=== PATIENT | male | born 1980 | race Caucasian/White ===

== ENCOUNTER 2018-06-22 10:05 | Emergency (ER) | payer BC ==
--- OUTSIDE RECORDS SUMMARY | 2018-06-22 10:30 | XMS REPORT ---
:1980 External Reference #:[id number] Author Organization [employer] Address [address] [place] [address] Phone [phone] Care Team Providers Name Role Phone Alison Lima M.D. Care Team Information Manager Equity Unavailable Payers Type Date Identification Numbers Payment Provider Subscriber Commercial Policy Number: [id number] Ray Rangel PayID: [id number] [address] [id number] [place] [address] Problems Date Description Provider Status Onset: 10/30/2011 Cholangitis Alison Lima M.D. Active Onset: 05/13/2014 Lumbar sprain Alison Lima M.D. Active Onset: 05/13/2014 Otitis media Alison Lima M.D. Active Onset: 05/20/2014 Cervical Arthritis Alison Lima M.D. Active Onset: 05/20/2014 Thoracic and lumbosacral neuritis Alison Lima M.D. Active Onset: 12/29/2014 Colitis, enteritis and gastroenteritis Alison Lima M.D. Active presumed infectious Family History Date Family Member(s) Problem(s) Comments Father Sleep Apnea Father Diabetes Mellitus, II Father Hyperlipidemia Father Heart Disease Father Hypertension Father Congestive Heart Failure (CHF) Father Cancer Father Diabetes Mellitus, II Father Congestive Heart Failure (CHF) Mother Skin Cancer First Sister Obesity Second Sister Thyroid Disease Social History Type Date Description Comments Cigarette Use Denies Smoking Cigarette Use Former Cigarette Smoker quit ETOH Use Occasionally consumes alcohol Smoking Patient is a current smoker, smokes every day Seat Belt/Car Seat Always uses a seat belt Personal Habits has been smoking synthetic marijuana, would like to quit Allergies, Adverse Reactions, Alerts Date Description Reaction Status Severity Comments 08/13/2006 NKDA active Medications Medication Date Status Form Strength Qnty SIG Indications Ordering Provider Carisoprodol 06/24 Active Tablets 350mg 240tabs 2 tab by M51.06 mouth q6 Gauss, hours M.D. Alprazolam 05/23 Active Tablets 1mg 90tabs 1 by F41.1 mouth Gauss, three M.D. times a day Omeprazole 08/30 Active Capsules 20mg 180caps take one DR daniela Lima, by mouth M.D. twice a day Carvedilol 07/04 Active Tablets 3.125mg 180tabs 1 by R00.2 mouth Gauss, twice a M.D. day Prednisone 01/27 Hx Tablets 10mg 30tabs 2 by M51.06 mouth Gauss, - every day M.D. 02/20 for week then 1 by mouth every day for 1 week then stop Amoxicillin/Clav 11/21 Hx Tablets 875-125mg 14tabs 1 by J06.9 Alison rosaura mouth Gauss, Potassium - twice a M.D. /2017 Azithromycin 10/23 Hx Tablets 250mg 6tabs 2 by J02.9 Alison mouth Gauss, - today, 1 M.D. 11/21 by mouth day 2 thru 5 Azithromycin 07/24 Hx Tablets 250mg 6tabs 2 by H66.92 mouth Gauss, - today, 1 M.D. 08/28 by mouth day 2 thru 5 Zanaflex 05/23 Hx Capsules 6mg 90caps 1 po tid M51.06 Gauss, - M.D. 06/24 Sertraline HCL 05/23 Hx Tablets 50mg 180tabs 1 by M50.023 mouth Gauss, - every day M.D. 10/23 for week then increase as needed to 2 daily Carisoprodol 04/01 Hx Tablets 350mg 180tabs 2 tab by M51.06 mouth q8 Gauss, - hours M.D. 05/23 Carisoprodol 09/26 Hx Tablets 350mg 180tabs 2 tab by M51.06 mouth q8 Janie, - hours M.D. 04/01 Azithromycin 08/30 Hx Tablets 250mg 6tabs 2 by J06.9 mouth Janie, - today, 1 M.D. 04/01 by mouth day 2 thru 5 Abilify 08/30 Hx Tablets 2mg 30tabs 1 po F43.21 daily Janie, - M.D. 10/23 Ciprodex 07/31 Hx Suspension 0.3-0.1% 5ml apply 2 drops MD Joanna - left ear 08/02 times a day for 1 week Naproxen 05/23 Hx Tablets 500mg 60tabs 1 by M5. mouth Janie, - twice a M.D. 08/28 day needed Soma 05/23 Hx Tablets 350mg 60tabs 1 by M5. mouth Janie, - three M.D. 09/26 times day and at bedtime Lidocaine 05/23 Hx Patches 5% 7units 1 patch to Janie, - affected M.D. 02/20 area, change daily Penicillin V 04/12 Hx Tablets 250mg 30tabs 1 by Alison mouth Janie, - four M.D. 05/23 times day Cyclobenzaprine 04/05 Hx Tablets 10mg 30tabs take 1 . tablet by Janie, - mouth M.D. 08/28 times a day if needed Celecoxib 04/05 Hx Capsules 200mg 180caps 1 by M5.06 mouth Janie, - twice M.D. 05/08 daily needed for joint pain Alprazolam 04/05 Hx Tablets 0.5mg 90tabs 1 by F41.1 mouth 3x Janie, - a day as M.D. 05/23 needed Lorazepam 03/12 Hx Tablets 1mg 120tabs 1 po q 6 M51.06 hours prn Janie, - muscle M.D. 04/05 spasm /2016 1 03/06 Hx Capsules 20mg 60caps 1 po F43.21 Alison /2016 daily for Gauss, - 2 weeks M.D. 03/06 then daily in am Fluoxetine HCL 03/06 Hx Capsules 20mg 180caps 2 po M50.023 Alison (PMDD) daily Gauss, - M.D. 05/23 Cymbalta 02/[address] 30mg 30caps 1 by Part mouth Gauss, - every day M.D. 02/19 Duloxetine HCL 02/[address] 20mg 30caps 1 by F43.21 Part mouth Gauss, - every day M.D. 03/06 Oxycodone-Acetam 02/05 Hx Tablets 7.5-325mg 120tabs 1 by 1. mouth Gauss, - every 6 M.D. 02/19 hours needed for pain Oxycodone HCL 12/22 Hx Tablets 10mg 120tabs 1 by . mouth Gauss, - every 6 M.D. 02/05 hours needed for pain Lorazepam 12/22 Hx Tablets 1mg 120tabs 1 po q 6 hours prn Gauss, - muscle M.D. 02/05 spasm Miralax 12/22 Hx Packet [id number] 90units 17 gms in 8 oz h2o Gauss, - every day M.D. 10/23 Robaxin 11/09 Hx Tablets 500mg 724.4 Gauss, - M.D. 11/09 Metaxalone 11/09 Hx Tablets 400mg 120tabs 1 po q 8 M54.16 hours as Gauss, - needed M.D. 10/23 for muscle spasms Oxycodone HCL ER 09/22 Hx Tab ER 12H 10mg 60tabs 1 by 0. Abuse-Det mouth Gauss, - twice a M.D. Oxycodone-Acetam 09/22 Hx Tablets 7.5-325mg 240tabs 2 by M50. mouth Gauss, - every 6 M.D. 10/22 hours needed for pain Nicotrol 08/25 Hx Inhaler 10mg 336units as drected Gauss, - M.D. 09/23 Metoclopramide 07/04 Hx Tablets 5mg 120tabs 1 po 12/03 Alison HCL hour Gauss, - before M.D. 04/01 meals as needed Azithromycin 06/06 Hx Tablets 250mg 6tabs 2 by 466.00 Alison mouth Gauss, - today, 1 M.D. 07/04 by mouth day 2 thru 5 Prednisone 05/03 Hx Tablets 10mg 21tabs 2 by 722.73 mouth Gauss, - every day M.D. 07/04 for week then 1 by mouth every day for 1 week then stop Roller Walker 05/03 Hx Misc 1units as 722.73 directed Gauss, - arthitis M.D. 05/03 and instabili ty Lidocaine 05/03 Hx Gel 2.8-0.55% 100gm apply to 722.73 Alison HCL-Hydrocortiso affected Janie ne Acetate With - areas M.D. Aloe 07/04 every hours as needed Diazepam 05/03 Hx Tablets 5mg 120tabs 1 tab po q 6 hrs Gauss, - prn M.D. 11/09 Oxycodone-Acetam 05/03 Hx Tablets 7.5-325mg 150tabs 1-2 by M51.06 Alison inophen mouth Gauss, - every 6 M.D. 12/22 hours needed for pain Cane 05/03 Hx Misc 1units as 722.73 directed Gauss, - for gait M.D. 07/04 instabili ty Metronidazole 12/29 Hx Tablets 500mg 20tabs 1 by 009.1 mouth Gauss, - twice a M.D. Ciprofloxacin 12/23 Hx Tablets 500mg 30tabs 1 by 463 Alison HCL mouth Gauss, - twice a M.D. Cyclobenzaprine 10/11 Hx Tablets 5mg 60tabs i twice a Alison HCL /2013 day prn Janie, - M.D. 07/04 Carisoprodol 08/23 Hx Tablets 350mg 60tabs 1 po bid 724.4 Janie, - M.D. 11/09 Baclofen 07/21 Hx Tablets 10mg 60tabs 1 by 724.4 mouth Janie, - twice a M.D. Nicotine Step 1 07/21 Hx Patches 21mg/24HR 30units 1 patch 24HR to skin Janie, - change M.D. 07/04 daily /2014 Lumbosacral 07/21 Hx Misc 1units as Alison Support/Abdomina /2013 [facility] 04/01 Valium 07/07 Hx Tablets 5mg 120tabs 1 by mouth Janie, - every 6hr M.D. 07/07 as needed /2013 Methylprednisolo 07/07 Hx Tablets 4mg 7tabs as Alison ne (Damaso) asha Lima, - M.D. 07/04 Diazepam 07/07 Hx Solution 1mg/ml 1 by mere Lima, - every 6hr M.D. 07/07 as needed Diazepam 07/07 Hx Tablets 10mg 120tabs 1 po q 6 724.4 hours Janie, - M.D. 07/21 Omeprazole 07/07 Hx Capsules 20mg 90caps [address] mere Lima, - every day M.D. 08/30 Hydrocodone-Acet 06/21 Hx Tablets 10-325mg 120tabs tab 1 by 847.2 Alison aminophen mouth Janie, - every M.D. 07/04 -6h /2014 as needed pain Tramadol HCL 06/21 Hx Tablets 50mg 100tabs 1 by 724.4 Alison mouth Janie, - every 6 M.D. 08/23 hours as needed pain Meloxicam 05/27 Hx Tablets 15mg 90tabs take 1 tablet Janie, - daily M.D. 07/07 with food Gabapentin 05/27 Hx Capsules 100mg 180caps 1 by 724.4 mouth Janie, - three M.D. 06/21 times a day Lidocaine HCL 05/25 Hx Gel 2% 50ml apply to 724.4 afftected Janie, - area M.D. 07/07 twice a day as needed Gabapentin 05/20 Hx Capsules 100mg 30caps 1 by 724.4 mouth at Janie, - at M.D. 05/27 bedtime Lidocaine 05/20 Hx Patches 5% 30units 1 patch 724.4 to Janie, - affected M.D. 05/25 area, change daily Work Note 05/20 Hx The above 724.4 is Janie, - disabled M.D. 07/04 from current occupatio n Azithromycin 05/13 Hx Tablets 250mg 6tabs 2 by 382.9 mouth Janie, - today, 1 M.D. 05/24 by mouth day 2 thru 5 Hydrocodone/Acet 05/13 Hx Tablets 10-325mg 120tabs tab 1 by 847.2 Alison aminophen mouth Janie, - every M.D. 06/21 -6hours as needed pain Zolpidem 03/18 Hx Tablets 10mg 30tabs 1 tab po G47.00 Alison Tartrate qhs prn Janie, - M.D. 02/19 Ibuprofen 10/26 Hx Tablets 600mg 100tabs 1 po q M51.06 6hrs Janie, - prn M.D. 04/05 Cyclobenzaprine 10/26 Hx Tablets 10mg 30tabs take 1 Alison HCL tablet by Janie, - mouth M.D. 05/13 times a day if needed Work Note 10/26 Hx the above 840.6 is Janie, - excused M.D. 05/20 from work /201306/24/14 No Active 02/23 Hx Unknown Medications /2012 - 02/23 Azithromycin 02/23 Hx Tablets 250mg 6tabs 2 po 473.90 Alison today, 1 Janie, - po day 2 M.D. 05/24 thru Work Note 02/23 Hx may 473.90 return to Janie, - work M.D. 10/2602/25/13 excused from work 02/23 and 02/24 Azithromycin 02/02 Hx Tablets 250mg 6tabs 2 po today, 1 Janie, - po day 2 M.D. 02/23 thru Nicoderm CQ 05/08 Hx Patches 21mg/24HR 30units as 24HR directed Janie, - appy MJayda 02/02 daily Bupropion HCL XL 03/05 Hx Tablets ER 150mg 90tabs take 1 309.0 24HR tablet by Janie, - mouth M.DRicardo 02/02 other day for 1 week then once daily Buspirone HCL 03/05 Hx Tablets 15mg 60tabs 1 po bid 309.0 Janie, - Aruna 02/02 Zolpidem 03/05 Hx Tablets 10mg 10tabs 1 tab po 309.0 Alison Tartrate qhs prn Janie - Hardy.DRicardo 02/02 Droperidol 02/25 Hx Solution 2.5mg/ml 50ml 2.5 ml po 078.82 q 6 hours Janie, - migue Valdovinos 02/02 nausea Hydralazine HCL 02/25 Hx Tablets 25mg 90tabs 1 po tid 292.0 Janie, - M.Lebron 03/05 Oxycodone/Acetam 02/05 Hx Tablets 5-325mg 180tabs 1 tab po Alison inophen q 4-6 hrs Janie - migue Valdovinos 02/25 Nortriptyline 02/05 Hx Capsules 50mg 60caps start 078.82 Alison HCL with 1 Janie, - tablet at M.DRicardo 03/05 bedtime may increase to 2 after 1 week Skelaxin 01/29 Hx Tablets 400mg 30tabs 1 po bid prn Janie - M.Lebron 02/25 Ibuprofen 01/02 Hx Tablets 200mg prn Elaine Lima MJayda 01/02 Ibuprofen 01/02 Hx Tablets 800mg 30tabs 1 po q8 hours prn Janie, - with food M.D. 02/02 Work Note 01/02 Hx may 847.2 return to Janie, - work M.D. 02/0401/07/2012 no restricti ons Doxycycline 01/02 Hx Capsules 100mg 14caps 1 po bid 682.90 Alison Monohydrate Janie - Aruna 02/04 Amoxicillin/Pota 10/30 Hx Tablets 875-125mg 20tabs 1 po bid 576.1 Alison ssium Janie Clavulanate - M.DRicardo 10/30 Metoclopramide 10/30 Hx Tablets 10mg 100tabs 1 tab po 576.1 Alison HCL q 6 hrs Janie, - prn M.DRicardo 01/02 Hydrocodone/Acet 10/30 Hx Tablets 5-500mg 30tabs tab 1 q 4 576.1 Alison aminophen hrs prn Janie, - pain M.D. 02/04 Work Note 10/30 Hx april 576.1 return to Janie, - work M.D. 01/02 1 no restricti ons Amoxicillin 10/30 Hx Tablets 500mg 30tabs 1 po tid 576.1 Elaine Lima MJayda 01/02 Azithromycin 04/05 Hx Tablets 250mg 6tabs 2 po today, 1 Janie, - po day 2 M.D. 09/25 thru Maxalt 01/10 Hx Tablets 10mg Samoles as Alison directed Elaine Lima MJayda 01/02 Work Note 01/14 Hx Excused from work Janie, - on Sep M.D. 09/25 Zofran 05/14 Hx Tablets 8mg 20tabs sl q 3 E920.5 El hours as MD Joanna - needed 01/06 nausea Compazine 05/11 Hx 10mg prn Janie - M.DRicardo 01/06 Zofran 05/11 Hx Tablets 4mg 20tabs 1 po q 3 E920.5 hours prn Janie - M.D. 05/14 Work Note 05/11 Hx off work for the Janie, - rest of M.D. 01/0605/13/08. may return to work on saturday05/17/08 Hydrocodone & 12/04 Hx Capsules 5mg;500 10caps 1 Tab PO Alison Acetaminophen mg Q 8 HR Janie, - Mod Pain M.DRicardo 05/11 Lumbar Corset 02/18 Hx 1units as 847.2 directed Janie - M.DRicardo 05/11 Cortisporin-TC 12/12 Hx Suspension 0.3%;0.33 5ml 1 gt A.D. %;1 % qid Janie - M.DRicardo 12/12 Work Note 12/12 Hx please excuse Janie, - from work M.D. 05/1112-14-06 Cortisporin 12/12 Hx Ointment 400U;3.5m 3.5gm as Ophthalmic g;38976P; directed Janie, - 10 bid M.D. 12/22 Return To Work 09/03 Hx return to work no Janie, - restricti M.DRicardo 05/1109/04/06 No Meds 08/13 Hx Janie - M.DRicardo 05/11 Skelaxin 08/13 Hx Tablets 800mg 30tabs prn 847.2 Janie - M.DRicardo 01/02 Ibuprofen 08/13 Hx Tablets 800mg 90tabs 1 PO Q8 847.2 Hours prn Janie, - With Food M.D. 01/02 Hydrocodone & 08/13 Hx Tablets 5mg;500 60tabs 1 or 2 847.2 Alison Acetaminophen /2005 mg tabs po q Janie, - 4 hrs prn M.DRicardo 11/30 Work Release 08/13 Hx the above 847.2 is Elaine Lima excused Aruna 05/11 from until 08/20 Combivir Hx Tablets po bid Unknown / - 01/06 Viread Hx Tablets 300mg qday Unknown - 01/06 Flexeril Hx Tablets 10mg 90tabs 1 po tid Alison prn Elaine Lmia M.D. 01/29 Amitriptyline Hx Tablets 50mg 180tabs 1 tab pot Unknown HCL 0000 qd - 02/05 Zofran Odt Hx Tablets 8mg 10tabs 1 po prn Alison Dispers nausea Elaine Lima M.D. 02/25 Ciprodex Hx Suspension 0.3-0.1% apply 2 Unknown drops - left ear 04/01 times a day for 1 week Immunizations CPT Code Status Date Vaccine Lot # [id number] Given 10/23/2017 Influenza Virus (Afluria) Split Virus 3 Years Of Age And Older Q2037 Given 09/26/2016 Influenza Vaccine (Fluvirin) 4 Years Of Age Or [id number] Older Q2035 Given 08/16/2015 Influenza Virus (Afluria) Split Virus 4 Years Of [id number] Age And Older Q2037 Given 08/23/2014 Influenza Vaccine (Fluvirin) 4 Years Of Age Or [id number] Older 17273 Given 07/21/2014 Tetanus,Diphtheria,Adut/Adol Pertussis 12419 Given 11/05/2006 Influenza Virus Vaccine (History Only) Vital Signs Date Vital Result Comment 06/17/2018 BP Systolic 122 mmHg BP Diastolic 78 mmHg Heart Rate 81 /min Respiratory Rate 18 /min Height 72 inches 6'0" Weight 237.00 lb BMI (Body Mass Index) 32.1 kg/m2 O2 % BldC Oximetry 96 % 05/20/2018 BP Systolic 130 mmHg BP Diastolic 88 mmHg Heart Rate 80 /min Respiratory Rate 18 /min Height 72 inches 6'0" Weight 241.00 lb BMI (Body Mass Index) 32.7 kg/m2 O2 % BldC Oximetry 95 % 04/15/2018 BP Systolic 140 mmHg BP Diastolic 90 mmHg Heart Rate 106 /min Respiratory Rate 18 /min Height 72 inches 6'0" Weight 241.00 lb BMI (Body Mass Index) 32.7 kg/m2 O2 % BldC Oximetry 94 % 03/19/2018 BP Systolic 126 mmHg BP Diastolic 78 mmHg Respiratory Rate 18 /min Height 72 inches 6'0" Weight 241.00 lb BMI (Body Mass Index) 32.7 kg/m2 02/20/2018 BP Systolic 120 mmHg BP Diastolic 78 mmHg Height 72 inches 6'0" Weight 241.00 lb BMI (Body Mass Index) 32.7 kg/m2 01/27/2018 BP Systolic 142 mmHg BP Diastolic 92 mmHg Respiratory Rate 18 /min Height 72 inches 6'0" Weight 226.00 lb BMI (Body Mass Index) 30.6 kg/m2 12/24/2017 BP Systolic 160 mmHg BP Diastolic 100 mmHg BP Systolic Recheck 132 mmHg BP Diastolic Recheck 82 mmHg Respiratory Rate 18 /min Height 72 inches 6'0" Weight 226.00 lb BMI (Body Mass Index) 30.6 kg/m2 11/21/2017 BP Systolic 138 mmHg BP Diastolic 90 mmHg Height 72 inches 6'0" Weight 226.00 lb BMI (Body Mass Index) 30.6 kg/m2 10/23/2017 BP Systolic 134 mmHg BP Diastolic 78 mmHg Height 72 inches 6'0" Weight 226.00 lb BMI (Body Mass Index) 30.6 kg/m2 08/28/2017 BP Systolic 128 mmHg BP Diastolic 76 mmHg 07/24/2017 BP Systolic 116 mmHg BP Diastolic 86 mmHg Weight 206.00 lb 06/24/2017 BP Systolic 130 mmHg BP Diastolic 80 mmHg 05/23/2017 BP Systolic 128 mmHg BP Diastolic 80 mmHg 04/01/2017 BP Systolic 140 mmHg BP Diastolic 90 mmHg Height 68 inches 5'8" Weight 218.00 lb BMI (Body Mass Index) 33.1 kg/m2 01/28/2017 BP Systolic 130 mmHg BP Diastolic 82 mmHg 12/26/2016 BP Systolic 122 mmHg BP Diastolic 78 mmHg 11/21/2016 BP Systolic 120 mmHg BP Diastolic 100 mmHg 09/26/2016 BP Systolic 110 mmHg BP Diastolic 72 mmHg 08/30/2016 BP Systolic 132 mmHg BP Diastolic 80 mmHg 08/02/2016 BP Systolic 122 mmHg BP Diastolic 80 mmHg 07/04/2016 BP Systolic 132 mmHg BP Diastolic 90 mmHg BP Systolic Recheck 130 mmHg BP Diastolic Recheck 88 mmHg 06/07/2016 BP Systolic 118 mmHg BP Diastolic 72 mmHg 05/23/2016 BP Systolic 158 mmHg BP Diastolic 88 mmHg 05/08/2016 BP Systolic 144 mmHg BP Diastolic 80 mmHg 04/05/2016 BP Systolic 138 mmHg BP Diastolic 62 mmHg Height 70 inches 5'10" Weight 188.00 lb BMI (Body Mass Index) 27.0 kg/m2 03/06/2016 BP Systolic 144 mmHg BP Diastolic 86 mmHg 02/06/2016 BP Systolic 120 mmHg BP Diastolic 80 mmHg 12/22/2015 BP Systolic 112 mmHg BP Diastolic 60 mmHg 10/13/2015 BP Systolic 130 mmHg BP Diastolic 80 mmHg 09/22/2015 BP Systolic 120 mmHg BP Diastolic 90 mmHg 09/15/2015 BP Systolic 130 mmHg BP Diastolic 70 mmHg 08/16/2015 BP Systolic 118 mmHg BP Diastolic 78 mmHg 07/04/2015 BP Systolic 112 mmHg BP Diastolic 80 mmHg 06/06/2015 BP Systolic 122 mmHg BP Diastolic 78 mmHg 05/03/2015 BP Systolic 114 mmHg BP Diastolic 84 mmHg 12/29/2014 BP Systolic 120 mmHg BP Diastolic 76 mmHg 12/23/2014 BP Systolic 118 mmHg BP Diastolic 74 mmHg Body Temperature 98.8 F Height 70 inches 5'10" Weight 200.00 lb BMI (Body Mass Index) 28.7 kg/m2 11/22/2014 BP Systolic 140 mmHg BP Diastolic 86 mmHg 08/23/2014 BP Systolic 120 mmHg BP Diastolic 80 mmHg Height 69 inches 5'9" Weight 180.00 lb BMI (Body Mass Index) 26.6 kg/m2 07/07/2014 BP Systolic 144 mmHg BP Diastolic 86 mmHg 06/21/2014 BP Systolic 122 mmHg BP Diastolic 60 mmHg Height 72 inches 6'0" Weight 183.00 lb BMI (Body Mass Index) 24.8 kg/m2 05/20/2014 BP Systolic 144 mmHg BP Diastolic 90 mmHg 05/13/2014 BP Systolic 144 mmHg BP Diastolic 86 mmHg Body Temperature 98.3 F 05/04/2014 BP Systolic 122 mmHg BP Diastolic 80 mmHg 03/18/2014 BP Systolic 132 mmHg BP Diastolic 80 mmHg 10/26/2013 BP Systolic 120 mmHg BP Diastolic 78 mmHg 02/23/2013 BP Systolic 120 mmHg BP Diastolic 70 mmHg Body Temperature 99.1 F 04/09/2012 BP Systolic 122 mmHg BP Diastolic 68 mmHg Height 71 inches 5'11" Weight 173.00 lb BMI (Body Mass Index) 24.1 kg/m2 03/05/2012 BP Systolic 118 mmHg BP Diastolic 60 mmHg Height 71 inches 5'11" 02/26/2012 BP Systolic 132 mmHg BP Diastolic 94 mmHg Height 71 inches 5'11" Weight 171.00 lb BMI (Body Mass Index) 23.8 kg/m2 02/06/2012 BP Systolic 96 mmHg BP Diastolic 68 mmHg Body Temperature 97.8 F Height 71 inches 5'11" Weight 177.00 lb BMI (Body Mass Index) 24.7 kg/m2 01/02/2012 BP Systolic 118 mmHg BP Diastolic 70 mmHg Body Temperature 97.4 F 10/30/2011 BP Systolic 131 mmHg BP Diastolic 81 mmHg Body Temperature 97.8 F 01/14/2009 BP Systolic 120 mmHg BP Diastolic 80 mmHg Height 72 inches 6'0" 08/17/2008 BP Systolic 112 mmHg BP Diastolic 60 mmHg Height 72 inches 6'0" Weight 202.00 lb BMI (Body Mass Index) 27.4 kg/m2 05/11/2008 BP Systolic 110 mmHg BP Diastolic 78 mmHg Height 72 inches 6'0" Weight 198.00 lb BMI (Body Mass Index) 26.9 kg/m2 02/18/2007 BP Systolic 122 mmHg BP Diastolic 60 mmHg Height 72 inches 6'0" Weight 189.00 lb BMI (Body Mass Index) 25.6 kg/m2 08/13/2006 BP Systolic 140 mmHg BP Diastolic 90 mmHg Height 72 inches 6'0" Weight 175.00 lb BMI (Body Mass Index) 23.7 kg/m2 Results Test Date Test Result H/L Range Note Laboratory test 05/09/2018 Surgical Interface SEE RESULT BELOW 1, 2 finding Order BMP W/O Egfr 03/08/2016 Sodium 138 mmol/L 133-145 Potassium 4.3 mmol/L 3.5-5.0 Chloride 103 mmol/L 101-111 Co2 Carbon Dioxide 29 mmol/L 22-32 Anion Gap 6 mmol/L 2-11 Glucose 82 mg/dL 70-100 Blood Urea Nitrogen 11 mg/dL 6-24 Creatinine 0.91 mg/dL 0.67-1.17 BUN/Creatinine Ratio 12.1 8-20 Calcium 9.4 mg/dL 8.6-10.3 Egfr Non- 95.4 >60 Egfr 122.7 >60 3 TSH+Free T4 ([place] & 03/08/2016 TSH (Thyroid Stim Horm) 0.92 ?IU/mL 0.34-5.60 [facility]) Free T4 (Free Thyroxine) 0.99 ng/dL 0.61-1.12 Lipid Panel 03/08/2016 Triglycerides 76 mg/dL 4 Cholesterol 126 mg/dL 5 HDL Cholesterol 35.3 mg/dL 6 LDL Cholesterol 76 mg/dL 7 CBC W/ Diff & PLT 03/08/2016 White Blood Count 5.2 10^3/uL 3.5-10.8 Red Blood Count 4.82 10^6/uL 4.0-5.4 Hemoglobin 14.6 g/dL 14.0-18.0 Hematocrit 43 % 42-52 Mean Corpuscular Volume 89 fL 80-94 Mean Corpuscular Hemoglobin 30 pg 27-31 Mean Corpuscular HGB Conc 34 g/dL 31-36 Red Cell Distribution Width 13 % 10.5-15 Platelet Count 273 10^3/uL 150-450 Mean Platelet Volume 9 um3 7.4-10.4 Abs Neutrophils 2.8 10^3/uL 1.5-7.7 Abs Lymphocytes 1.8 10^3/uL 1.0-4.8 Abs Monocytes 0.4 10^3/uL 0-0.8 Abs Eosinophils 0.1 10^3/uL 0-0.6 Abs Basophils 0 10^3/uL 0-0.2 Abs Nucleated RBC 0 10^3/uL Granulocyte % 54.4 % 38-83 Lymphocyte % 34.2 % 25-47 Monocyte % 8.1 % 1-9 Eosinophil % 2.5 % 0-6 Basophil % 0.8 % 0-2 Nucleated Red Blood Cells % 0.1 Surgical Pathology 02/03/2015 S RUN DATE: 02/04/ <SEE 8 NOTE> Liver - Hepatic Panel 01/05/2015 Total Protein 6.7 g/dL 6.4-8.9 Albumin 4.5 g/dL 3.2-5.2 Globulin 2.2 g/dL 2-4 Albumin/Globulin Ratio 2.0 1-3 Total Bilirubin 1.10 mg/dL High 0.2-1.0 Direct Bilirubin 0.30 mg/dL High 0.03-0.18 Indirect Bilirubin 0.8 mg/dL 0.3-1.0 Alkaline Phosphatase 71 U/L 34-104 Alt 32 U/L 7-52 Ast 20 U/L 13-39 Hepatitis Acute Panel 01/05/2015 Hepatitis B Surface Nonreactive Nonreactive Antigen Hepatitis B Core IgM Nonreactive Nonreactive Hepatitis A AB IgM Nonreactive Nonreactive Hepatitis C Antibody Nonreactive Nonreactive Culture,Throat 12/29/2014 Source RESPIRATORY-THRT 9 Final Report SEE NOTE 10 CBC W/Auto Diff 12/24/2014 White Blood Count 10.5 10^3/uL 4.8-10.8 Red Blood Count 5.25 10^6/uL 4.0-5.4 Hemoglobin 16.1 g/dL 14.0-18.0 Hematocrit 48 % 42-52 Mean Corpuscular Volume 91 fL 80-94 Mean Corpuscular Hemoglobin 31 pg 27-31 Mean Corpuscular HGB Conc 34 g/dL 31-36 Red Cell Distribution Width 13 % 10.5-15 Platelet Count 280 10^3/uL 150-450 Mean Platelet Volume 10 um3 7.4-10.4 Abs Neutrophils 7.2 10^3/uL 1.5-7.7 Abs Lymphocytes 2.2 10^3/uL 1.0-4.8 Abs Monocytes 0.8 10^3/uL 0-0.8 Abs Eosinophils 0.4 10^3/uL 0-0.6 Abs Basophils 0 10^3/uL 0-0.2 Abs Nucleated RBC 0.01 10^3/uL Granulocyte % 68.3 % 38-83 Lymphocyte % 20.6 % Low 25-47 Monocyte % 7.2 % 1-9 Eosinophil % 3.5 % 0-6 Basophil % 0.4 % 0-2 Nucleated Red Blood Cells % 0.1 BMP 12/24/2014 Sodium 138 mmol/L 133-145 Potassium 3.9 mmol/L 3.5-5.0 Chloride 103 mmol/L 101-111 Co2 Carbon Dioxide 29 mmol/L 22-32 Anion Gap 6 mmol/L 2-11 Glucose 104 mg/dL High 70-100 Blood Urea Nitrogen 13 mg/dL 6-24 Creatinine 1.03 mg/dL 0.67-1.17 BUN/Creatinine Ratio 12.6 8-20 Calcium 9.6 mg/dL 8.6-10.3 Egfr Non- 83.2 >60 Egfr 107.0 >60 11 Liver - Hepatic Panel 12/24/2014 Total Protein 7.3 g/dL 6.4-8.9 Albumin 4.8 g/dL 3.2-5.2 Globulin 2.5 g/dL 2-4 Albumin/Globulin Ratio 1.9 1-3 Total Bilirubin 1.60 mg/dL High 0.2-1.0 Direct Bilirubin 0.30 mg/dL High 0.03-0.18 Indirect Bilirubin 1.3 mg/dL High 0.3-1.0 Alkaline Phosphatase 79 U/L 34-104 Alt 27 U/L 7-52 Ast 17 U/L 13-39 Laboratory test finding 12/24/2014 Amylase 35 U/L 29-103 Lipase 21 U/L 11.0-82.0 Hla B27 Antigen 06/17/2014 Hla B27 Negative 12 Hla B27 Interp See Comment 13 Arthritis Panel One 06/17/2014 Erythrocyte Sed Rate 7 mm/Hr 0-14 Uric Acid 6.4 mg/dL 4.4-7.6 Bev (Anti-Nuclear AB) Screen Negative Negative Rheumatoid Factor <15 IU/mL <15 14 CBC No Diff 02/27/2012 White Blood Count 6.1 CUMM 4.8-10.8 Red Cell Count 4.66 CUMM 4.6-6.2 Hemoglobin 14.8 g/dL 14.0-18.0 Hematocrit 43 % 42-52 Mean Corpuscular Volume 93 um3 80-94 Mean Corpuscular Hemoglob 32 pg High 27-31 Mean Corpuscular HGB Cone 34 g/dL 32-36 Redcell Distribution WDTH 13 % 10.5-15 Platelet Count 308 CUMM 150-450 Mean Platelet Volume 9.0 um3 7.4-10.4 Basic Metabolic Panel 02/27/2012 Sodium 140 mmol/L 135-145 Potassium 4.9 mmol/L 3.5-5.0 Chloride 103 mmol/L 101-111 Co2 (Carbon Dioxide) 33.0 mmol/L High 22-32 Anion Gap 4.0 mmol/L 2-11 15 Glucose 92 mg/dL 70-100 BUN 8 mg/dL 6-24 Creatinine 1.0 mg/dL 0.50-1.40 One Over Creatinine 1.00 BUN/Creatinine Ratio 8.0 8-20 Calcium 9.6 mg/dL 8.1-9.9 eGFR Non- 87.7 > 60 eGFR 112.8 > 60 16 Lipid Profile (Trig/Chol/HDL) 02/27/2012 Triglyceride 52 mg/dL 40-200 Cholesterol 149 mg/dL Less Than 200 17 High Density Lipoprotein 38 mg/dL Low 40-60 18 Cholesterol/HDL Ratio 3.92 AVERAGE 1-4.97 Low Density Lipoprotein 101 mg/dL High Less Than 100 19 Laboratory test finding 02/27/2012 Lipase 40 U/L 22-51 TSH 0.92 MIU/ML 0.34-5.60 Hemoglobin A1c 4.8 % Less Than 6.0 20 Vitamin D, 25 Hydroxy 02/27/2012 25-Hydroxy Vitamin D2 <4.0 ng/mL () 25-Hydroxy Vitamin D3 24 ng/mL () 25-Hydroxy Vitamin D Total 24 ng/mL () 21 Urinalysis 02/09/2012 Ua Color YELLOW Yellow Appearance-Urine CLEAR Clear Specific Marion-Ur 1.014 1.010-1.030 Esterase-Urine NEGATIVE Negative Nitrite NEGATIVE Negative [id number] NEGATIVE Negative Protein-Urine NEGATIVE Negative PH-Urine 8.5 5-9 Blood-Urine NEGATIVE Negative Ketones-Urine NEGATIVE Negative Bilirubin-Ur NEGATIVE Negative Glucose-Urine NEGATIVE Negative Urine Drug SCR ED & 02/09/2012 Amphetamines Urine NONE DETECTED None Detect Pain Clinic Screen Barbituates Urine Screen NONE DETECTED None Detect Benzodiazepine Ur Screen NONE DETECTED None Detect Cannabinoid Urine Screen NONE DETECTED None Detect Cocaine Metabolites Urine NONE DETECTED None Detect Opiates Urine Screen POSITIVE None Detect PCP Urine Screen NONE DETECTED None Detect 22 Comp Metabolic Panel 02/09/2012 Sodium 138 mmol/L 135-145 Potassium 4.2 mmol/L 3.5-5.0 Chloride 102 mmol/L 101-111 Co2 (Carbon Dioxide) 27.0 mmol/L 22-32 Anion Gap 9.0 mmol/L 2-11 23 Glucose 104 mg/dL High 70-100 BUN 7 mg/dL 6-24 Creatinine 0.9 mg/dL 0.50-1.40 One Over Creatinine 1.11 BUN/Creatinine Ratio 7.8 Low 8-20 Calcium 9.1 mg/dL 8.1-9.9 Total Protein 7.3 GM/DL 6.2-8.1 Albumin 4.4 GM/DL 3.6-5.4 Globulin 2.9 GM/DL 2-4 Albumin/Globulin Ratio 1.5 1-3 Bilirubin Total 1.0 mg/dL 0.4-1.5 24 Alkaline Phosphatase 83 U/L 39-117 Alt (SGPT) 29 U/L 17-63 Ast (Sgot) 23 U/L 12-42 eGFR Non- 99.1 > 60 eGFR 127.4 > 60 25 Laboratory test finding 02/09/2012 Magnesium 2.2 mg/dL 1.7-2.6 Lipase 66 U/L High 22-51 Troponin-I 0 NG/ML 0-0.06 26 CBC Auto Diff 02/09/2012 White Blood Count 12.8 CUMM High 4.8-10.8 Red Cell Count 4.73 CUMM 4.6-6.2 Hemoglobin 15.4 g/dL 14.0-18.0 Hematocrit 44 % 42-52 Mean Corpuscular Volume 94 um3 80-94 Mean Corpuscular Hemoglob 33 pg High 27-31 Mean Corpuscular HGB Cone 35 g/dL 32-36 Redcell Distribution WDTH 14 % 10.5-15 Platelet Count 257 CUMM 150-450 Mean Platelet Volume 9.7 um3 7.4-10.4 27 Manual Differential 02/09/2012 Polysegmented Neutrophil 82 % 38-83 Band Neutrophil 6 % 0-8 Lymphocyte 9 % Low 25-47 Monocyte 3 % 0-13 Absolute Neutrophil Count 11.2 RBC Morphology NORMAL Comp Metabolic Panel 01/14/2012 Sodium 139 mmol/L 135-145 Potassium 3.5 mmol/L 3.5-5.0 Chloride 101 mmol/L 101-111 Co2 (Carbon Dioxide) 30.0 mmol/L 22-32 Anion Gap 8.0 mmol/L 2-11 28 Glucose 83 mg/dL 70-100 BUN 11 mg/dL 6-24 Creatinine 1.0 mg/dL 0.50-1.40 One Over Creatinine 1.00 BUN/Creatinine Ratio 11.0 8-20 Calcium 9.3 mg/dL 8.1-9.9 Total Protein 6.5 GM/DL 6.2-8.1 Albumin 4.3 GM/DL 3.6-5.4 Globulin 2.2 GM/DL 2-4 Albumin/Globulin Ratio 2.0 1-3 Bilirubin Total 1.0 mg/dL 0.4-1.5 29 Alkaline Phosphatase 77 U/L 39-117 Alt (SGPT) 21 U/L 17-63 Ast (Sgot) 27 U/L 12-42 eGFR Non- 87.7 > 60 eGFR 112.8 > 60 30 Laboratory test finding 01/14/2012 Lipase 29 U/L 22-51 CBC Auto Diff 01/14/2012 White Blood Count 15.0 CUMM High 4.8-10.8 Red Cell Count 4.39 CUMM Low 4.6-6.2 Hemoglobin 14.0 g/dL 14.0-18.0 Hematocrit 40 % Low 42-52 Mean Corpuscular Volume 91 um3 80-94 Mean Corpuscular Hemoglob 32 pg High 27-31 Mean Corpuscular HGB Cone 35 g/dL 32-36 Redcell Distribution WDTH 13 % 10.5-15 Platelet Count 293 CUMM 150-450 Mean Platelet Volume 9.2 um3 7.4-10.4 31 Manual Differential 01/14/2012 Polysegmented Neutrophil 72 % 38-83 Lymphocyte 20 % Low 25-47 Monocyte 5 % 0-13 Eosinophil 1 % 0-6 Atypical Lymph 2 % 0-6 Absolute Neutrophil Count 10.8 Anisocytosis SLIGHT Comp Metabolic Panel 12/24/2011 Sodium 139 mmol/L 135-145 Potassium 3.9 mmol/L 3.5-5.0 Chloride 104 mmol/L 101-111 Co2 (Carbon Dioxide) 27.0 mmol/L 22-32 Anion Gap 8.0 mmol/L 2-11 32 Glucose 102 mg/dL High 70-100 BUN 8 mg/dL 6-24 Creatinine 0.9 mg/dL 0.50-1.40 One Over Creatinine 1.11 BUN/Creatinine Ratio 8.9 8-20 Calcium 9.0 mg/dL 8.1-9.9 Total Protein 6.6 GM/DL 6.2-8.1 Albumin 4.3 GM/DL 3.6-5.4 Globulin 2.3 GM/DL 2-4 Albumin/Globulin Ratio 1.9 1-3 Bilirubin Total 0.9 mg/dL 0.4-1.5 33 Alkaline Phosphatase 79 U/L 39-117 Alt (SGPT) 17 U/L 17-63 Ast (Sgot) 21 U/L 12-42 eGFR Non- 99.1 > 60 eGFR 127.4 > 60 34 CBC Auto Diff 12/24/2011 White Blood Count 12.0 CUMM High 4.8-10.8 Red Cell Count 4.83 CUMM 4.6-6.2 Hemoglobin 15.3 g/dL 14.0-18.0 Hematocrit 44 % 42-52 Mean Corpuscular Volume 92 um3 80-94 Mean Corpuscular Hemoglob 32 pg High 27-31 Mean Corpuscular HGB Cone 35 g/dL 32-36 Redcell Distribution WDTH 13 % 10.5-15 Platelet Count 253 CUMM 150-450 Mean Platelet Volume 8.3 um3 7.4-10.4 35 Manual Differential 12/24/2011 Polysegmented Neutrophil 82 % 38-83 Lymphocyte 12 % Low 25-47 Monocyte 4 % 0-13 Eosinophil 1 % 0-6 Basophil 1 % 0-2 Absolute Neutrophil Count 9.8 RBC Morphology NORMAL CBC Auto Diff 10/31/2011 White Blood Count 9.2 CUMM 4.8-10.8 Red Cell Count 4.76 CUMM 4.6-6.2 Hemoglobin 15.2 g/dL 14.0-18.0 Hematocrit 44 % 42-52 Mean Corpuscular Volume 92 um3 80-94 Mean Corpuscular Hemoglob 32 pg High 27-31 Mean Corpuscular HGB Cone 35 g/dL 32-36 Redcell Distribution WDTH 13 % 10.5-15 Platelet Count 258 CUMM 150-450 Mean Platelet Volume 9.9 um3 7.4-10.4 Gran % 73.1 % 38-83 Lymph % 20.9 % Low 25-47 Mononuclear % 4.7 % 1-9 Eosinophil % 1.0 % 0-6 Basophil % 0.3 % 0-2 Abs Lymphs 1.9 1.0-4.8 Abs Mononuclear 0.4 0-0.8 Absolute Neutrophil Count 6.8 1.5-7.7 Abs Eosinophils 0.1 0-0.6 Abs Basophils 0 0-0.2 Liver Function Panel 10/31/2011 Total Protein 7.0 GM/DL 6.2-8.1 Albumin 4.3 GM/DL 3.6-5.4 Globulin 2.7 GM/DL 2-4 Albumin/Globulin Ratio 1.6 1-3 Bilirubin Total 3.2 mg/dL High 0.4-1.5 36 Bilirubin Direct 0.3 mg/dL 0.1-0.5 Indirect Bilirubin 2.9 mg/dL High 0.3-1.0 37 Alkaline Phosphatase 83 U/L 39-117 Alt (SGPT) 108 U/L High 17-63 Ast (Sgot) 49 U/L High 12-42 CBC Auto Diff 10/29/2011 White Blood Count 12.1 CUMM High 4.8-10.8 Red Cell Count 5.02 CUMM 4.6-6.2 Hemoglobin 16.2 g/dL 14.0-18.0 Hematocrit 47 % 42-52 Mean Corpuscular Volume 93 um3 80-94 Mean Corpuscular Hemoglob 32 pg High 27-31 Mean Corpuscular HGB Cone 35 g/dL 32-36 Redcell Distribution WDTH 13 % 10.5-15 Platelet Count 266 CUMM 150-450 Mean Platelet Volume 10.6 um3 High 7.4-10.4 Gran % 69.2 % 38-83 Lymph % 18.0 % Low 25-47 Mononuclear % 7.7 % 1-9 Eosinophil % 4.4 % 0-6 Basophil % 0.7 % 0-2 Abs Lymphs 2.2 1.0-4.8 Abs Mononuclear 0.9 High 0-0.8 Absolute Neutrophil Count 8.4 High 1.5-7.7 Abs Eosinophils 0.5 0-0.6 Abs Basophils 0.1 0-0.2 Comp Metabolic Panel 10/29/2011 Sodium 143 mmol/L 135-145 Potassium 4.1 mmol/L 3.5-5.0 Chloride 106 mmol/L 101-111 Co2 (Carbon Dioxide) 23.0 mmol/L 22-32 Anion Gap 14.0 mmol/L High 2-11 38 Glucose 92 mg/dL 70-100 BUN 15 mg/dL 6-24 Creatinine 1.0 mg/dL 0.50-1.40 One Over Creatinine 1.00 BUN/Creatinine Ratio 15.0 8-20 Calcium 9.6 mg/dL 8.1-9.9 Total Protein 7.4 GM/DL 6.2-8.1 Albumin 4.3 GM/DL 3.6-5.4 Globulin 3.1 GM/DL 2-4 Albumin/Globulin Ratio 1.4 1-3 Bilirubin Total 1.2 mg/dL 0.4-1.5 39 Alkaline Phosphatase 81 U/L 39-117 Alt (SGPT) 107 U/L High 17-63 Ast (Sgot) 64 U/L High 12-42 eGFR Non- 88.3 > 60 eGFR 113.6 > 60 40 Laboratory test finding 10/29/2011 Lipase 37 U/L 22-51 Comp Metabolic Panel 10/19/2011 Sodium 139 mmol/L 135-145 41 Potassium 4.4 mmol/L 3.5-5.0 41 Chloride 102 mmol/L 101-111 41 Co2 (Carbon Dioxide) 30.0 mmol/L 22-32 41 Anion Gap 7.0 mmol/L 2-11 41, 42 Glucose 93 mg/dL 70-100 41 BUN 10 mg/dL 6-24 41 Creatinine 1.0 mg/dL 0.50-1.40 41 One Over Creatinine 1.00 41 BUN/Creatinine Ratio 10.0 8-20 41 Calcium 8.9 mg/dL 8.1-9.9 41 Total Protein 5.9 GM/DL Low 6.2-8.1 41 Albumin 3.8 GM/DL 3.6-5.4 41 Globulin 2.1 GM/DL 2-4 41 Albumin/Globulin Ratio 1.8 1-3 41 Bilirubin Total 0.8 mg/dL 0.4-1.5 41, 43 Alkaline Phosphatase 68 U/L 39-117 41 Alt (SGPT) 33 U/L 17-63 41 Ast (Sgot) 29 U/L 12-42 41 eGFR Non- 88.3 > 60 41 eGFR 113.6 > 60 41, 44 Laboratory test finding 10/19/2011 Amylase 57 U/L 20-120 41, 45 CBC With Manual Diff 10/19/2011 White Blood Count 8.0 CUMM 4.8-10.8 41 Red Cell Count 4.33 CUMM Low 4.6-6.2 41 Hemoglobin 14.0 g/dL 14.0-18.0 41 Hematocrit 40 % Low 42-52 41 Mean Corpuscular Volume 92 um3 80-94 41 Mean Corpuscular Hemoglob 32 pg High 27-31 41 Mean Corpuscular HGB Cone 35 g/dL 32-36 41 Redcell Distribution WDTH 13 % 10.5-15 41 Platelet Count 186 CUMM 150-450 41 Mean Platelet Volume 10.1 um3 7.4-10.4 41 Polysegmented Neutrophil 56 % 38-83 41 Band Neutrophil 1 % 0-8 41 Lymphocyte 38 % 25-47 41 Monocyte 3 % 0-13 41 Eosinophil 2 % 0-6 41 Absolute Neutrophil Count 4.5 41 RBC Morphology NORMAL 41 CBC With Manual Diff 09/27/2011 White Blood Count 7.4 CUMM 4.8-10.8 46 Red Cell Count 4.42 CUMM Low 4.6-6.2 46 Hemoglobin 14.4 g/dL 14.0-18.0 46 Hematocrit 41 % Low 42-52 46 Mean Corpuscular Volume 92 um3 80-94 46 Mean Corpuscular Hemoglob 33 pg High 27-31 46 Mean Corpuscular HGB Cone 36 g/dL 32-36 46 Redcell Distribution WDTH 13 % 10.5-15 46 Platelet Count 252 CUMM 150-450 46 Mean Platelet Volume 8.6 um3 7.4-10.4 46 Polysegmented Neutrophil 70 % 38-83 46 Lymphocyte 22 % Low 25-47 46 Monocyte 5 % 0-13 46 Eosinophil 3 % 0-6 46 Absolute Neutrophil Count 5.1 46 RBC Morphology NORMAL 46 Liver Function Panel 09/27/2011 Total Protein 6.7 GM/DL 6.2-8.1 46 Albumin 4.0 GM/DL 3.6-5.4 46 Globulin 2.7 GM/DL 2-4 46 Albumin/Globulin Ratio 1.5 1-3 46 Bilirubin Total 1.4 mg/dL 0.4-1.5 46, 47 Bilirubin Direct 0.2 mg/dL 0.1-0.5 46 Indirect Bilirubin 1.2 mg/dL High 0.3-1.0 46, 48 Alkaline Phosphatase 73 U/L 39-117 46 Alt (SGPT) 28 U/L 17-63 46 Ast (Sgot) 27 U/L 12-42 46 Laboratory test 09/27/2011 Amylase 51 U/L 20-120 46, 49 finding Laboratory test 09/04/2008 Throat Culture NORMAL THROAT FL 50 finding Complete <SEE NOTE> Liver Function Tests 08/11/2008 Total Protein 7.7 g/dL 6.3-8.0 Albumin 4.2 g/dL 3.5-5.0 Bilirubin,Total 1.4 mg/dL High 0.2-1.2 Bilirubin,Direct 0.2 mg/dL 0.1-0.4 Bilirubin,Indirect 1.2 mg/dL High 0.0-0.9 Sgot/Ast 23 U/L 16-40 SGPT/Alt 48 U/L 30-65 Alkaline Phosphatase 118 U/L 50-136 Globulin 3.5 gm/dL 1.9-4.3 Alb/Glob 1.2 Basic Metabolic Panel 08/11/2008 Glucose 98 mg/dL 76-115 BUN 14 mg/dL 5-23 Creatinine 1.0 mg/dL 0.5-1.4 BUN/Creat 14.0 Sodium 139 mEq/L 136-145 Potassium 3.7 mEq/L 3.5-5.1 Chloride 103 mEq/L 98-107 Carbon Dioxide 25 mEq/L 21-32 Anion Gap 15 mEq/L 8-16 Calcium 8.6 mg/dL 8.5-10.1 CBC W/Automated Diff 08/11/2008 White Blood Count 6.3 K/uL 3.4-10.5 Red Blood Count 4.78 M/uL 4.20-5.80 Hemoglobin 15.1 gm/dL 12.8-17.0 Hematocrit 42.6 % 38.0-48.0 Mean Cell Volume 89.1 fl 80.0-96.0 Mean Corpuscular HGB 31.6 pg 27.0-33.0 Mean Corpuscular HGB Conc 35.4 g/dL 31.7-36.0 Platelet Count 254 K/uL 150-400 Red Cell Distri Width %CV 12.9 % 11.6-15.8 Mean Platelet Volume 10.3 fL 6.6-10.6 Neut% 59.9 % 33.0-73.0 Lymph % 28.8 % 17.0-56.0 Davidson % 9.1 % 0.0-10.0 Eo% 1.9 % 0.0-5.0 Bas% 0.3 % 0.1-1.0 Neut# 3.8 K/uL 1.8-7.0 Lymph # 1.8 K/uL 1.2-4.0 Davidson # 0.6 K/uL 0.0-0.6 Eos # 0.1 K/uL 0.0-0.5 Baso # 0.0 K/uL Low 0.1-0.2 Red Cell Distri Width SD 42 fl 36-51 Liver Function Tests 07/05/2008 Total Protein 7.1 g/dL 6.3-8.0 Albumin 3.9 g/dL 3.5-5.0 Bilirubin,Total 1.3 mg/dL High 0.2-1.2 Bilirubin,Direct 0.2 mg/dL 0.1-0.4 Bilirubin,Indirect 1.1 mg/dL High 0.0-0.9 Sgot/Ast 27 U/L 16-40 SGPT/Alt 58 U/L 30-65 Alkaline Phosphatase 98 U/L 50-136 Basic Metabolic Panel 06/17/2008 Glucose 87 mg/dL 76-115 BUN 16 mg/dL 5-23 Estimated GFR (SEE NOTE) Creatinine 1.0 mg/dL 0.5-1.4 BUN/Creat 16.0 Sodium 139 mEq/L 136-145 Potassium 3.6 mEq/L 3.5-5.1 Chloride 102 mEq/L 98-107 Carbon Dioxide 28 mEq/L 21-32 Anion Gap 13 mEq/L 8-16 Calcium 8.9 mg/dL 8.5-10.1 CBC W/Automated Diff 06/17/2008 White Blood Count 5.0 K/uL 3.4-10.5 Red Blood Count 4.62 M/uL 4.20-5.80 Hemoglobin 14.7 gm/dL 12.8-17.0 Hematocrit 41.9 % 38.0-48.0 Mean Cell Volume 90.7 fl 80.0-96.0 Mean Corpuscular HGB 31.8 pg 27.0-33.0 Mean Corpuscular HGB Conc 35.1 g/dL 31.7-36.0 Platelet Count 289 K/uL 150-400 Red Cell Distri Width %CV 17.5 % High 11.6-15.8 Mean Platelet Volume 10.2 fL 6.6-10.6 Neut% 52.9 % 33.0-73.0 Lymph % 33.7 % 17.0-56.0 Davidson % 10.6 % High 0.0-10.0 Eo% 2.2 % 0.0-5.0 Bas% 0.6 % 0.1-1.0 Neut# 2.6 K/uL 1.8-7.0 Lymph # 1.7 K/uL 1.2-4.0 Davidson # 0.5 K/uL 0.0-0.6 Eos # 0.1 K/uL 0.0-0.5 Baso # 0.0 K/uL Low 0.1-0.2 Red Cell Distri Width SD 56 fl High 36-51 Liver Function Tests 06/17/2008 Total Protein 7.7 g/dL 6.3-8.0 Albumin 4.3 g/dL 3.5-5.0 Bilirubin,Total 2.1 mg/dL High 0.2-1.2 Bilirubin,Direct 0.2 mg/dL 0.1-0.4 Bilirubin,Indirect 1.9 mg/dL High 0.0-0.9 Sgot/Ast 29 U/L 16-40 SGPT/Alt 55 U/L 30-65 Alkaline Phosphatase 107 U/L 50-136 Laboratory test finding 06/17/2008 Hepatitis C Virus Rna Negative Negative 51 (PCR)-QL CBC W/Automated Diff 05/20/2008 White Blood Count 6.0 K/uL 3.4-10.5 Red Blood Count 4.87 M/uL 4.20-5.80 Hemoglobin 14.8 gm/dL 12.8-17.0 Hematocrit 42.3 % 38.0-48.0 Mean Cell Volume 86.9 fl 80.0-96.0 Mean Corpuscular HGB 30.4 pg 27.0-33.0 Mean Corpuscular HGB Conc 35.0 g/dL 31.7-36.0 Platelet Count 300 K/uL 150-400 Red Cell Distri Width %CV 13.9 % 11.6-15.8 Mean Platelet Volume 9.8 fL 6.6-10.6 Neut% 62.7 % 33.0-73.0 Lymph % 28.6 % 17.0-56.0 Davidson % 6.7 % 0.0-10.0 Eo% 1.7 % 0.0-5.0 Bas% 0.3 % 0.1-1.0 Neut# 3.8 K/uL 1.8-7.0 Lymph # 1.7 K/uL 1.2-4.0 Davidson # 0.4 K/uL 0.0-0.6 Eos # 0.1 K/uL 0.0-0.5 Baso # 0.0 K/uL Low 0.1-0.2 Red Cell Distri Width SD 39 fl 36-51 LDL Cholesterol Profile 05/20/2008 Cholesterol 148 mg/dL 120-200 Triglycerides 86 mg/dL 0-210 HDL Cholesterol 47 mg/dL 32-96 LDL-Cholesterol 84 mg/dL 62-185 Basic Metabolic Panel 05/20/2008 Glucose 66 mg/dL Low 76-115 BUN 18 mg/dL 5-23 Creatinine 1.2 mg/dL 0.5-1.4 BUN/Creat 15.0 Sodium 142 mEq/L 136-145 Potassium 3.9 mEq/L 3.5-5.1 Chloride 104 mEq/L 98-107 Carbon Dioxide 27 mEq/L 21-32 Anion Gap 15 mEq/L 8-16 Calcium 8.9 mg/dL 8.5-10.1 Liver Function Tests 05/20/2008 Total Protein 7.4 g/dL 6.3-8.0 Albumin 4.4 g/dL 3.5-5.0 Bilirubin,Total 1.4 mg/dL High 0.2-1.2 Bilirubin,Direct DNR mg/dL 0.1-0.4 52 Bilirubin,Indirect DNR mg/dL 0.0-0.9 53 Sgot/Ast 28 U/L 16-40 SGPT/Alt 61 U/L 30-65 Alkaline Phosphatase 100 U/L 50-136 Culture,Urine,Voided 05/11/2008 Source URINE-CC Preliminary Report DNR Interim Report DNR Organism #1 DNR Organism #2 DNR Organism #3 DNR Organism #4 [id number] 4399 DNR Hepatitis C Antibody 05/06/2008 Hepatitis C Antibody NONREACTIVE Nonreacti Signal/Cutoff ratio 0.22 <0.80 54 Laboratory test finding 05/06/2008 SGPT/Alt 48 U/L 30-65 Hepatitis B Surface Antibody < 2.5 mIU/mL Low 10- 55 Urine Screen 02/11/2007 Urine Color YELLOW Yellow Urine Clarity SL CLOUDY Clear Urine Glucose - Dipstick NEGATIVE NEGATIVEm Urine Bilirubin - Dipstick NEGATIVE Negative Urine Ketone NEGATIVE NEGATIVEm Urine Specific Marion 1.020 1.010-1.030 Urine Blood NEGATIVE Negative Urine PH 7.5 6.5-7.5 Urine Protein - Dipstick NEGATIVE NEGATIVEm Urine Urobilinogen - Dipstick 0.2 E.U./dL 0.2-1.0 Urine Nitrite - Dipstick NEGATIVE Negative Urine Leuk Esterase NEGATIVE Negative 1 [id number] 2 SEE RESULT BELOW Name: EZEQUIEL MARTINEZ : [address]: Parish Gaitan MD Acct: [id number] Unit: [id number] AGE: 37 Location: [facility] Re05/09/18 SEX: M Status: REG REF SPEC: [id number] REBECCA: 05/09/[address] [facility] [address]: Parish Gaitan MD REQ: [id number] RECD: 05/09/18 STATUS: FAROOQ ARROYO DR: Alison Lima MD _ ORDERED: LEVEL 4 COMMENTS: [id number] FINAL DIAGNOSIS Skin, right cheek, excision: -- Benign, predominantly intradermal melanocytic nevus, largely neurotized, with incidental associated epidermal inclusion cyst with features of rupture. -- Deep, tip and lateral margins of resection are clear. CLINICAL HISTORY Long standing lesion with recent infection 2 months ago PRE-OPERATIVE DIAGNOSIS Nevus versus neurofibroma GROSS DESCRIPTION The specimen is received in formalin labeled, Excision Lesion Right Cheek, and consists of a 3.2 x 1.2 cm cheek-beavers hairbearing unoriented skin ellipse excised to a maximum depth of 0.7 cm with a central 1.1 x 1.1 x 0.5 cm cheek wrinkled nodule. The specimen is inked, serially sectioned and entirely submitted in cassettes A through D to include ellipse ends in cassette A. Signed by and Reported on: Nico Boyd MD 1009 END OF REPORT DEPARTMENT OF PATHOLOGY, [address], [place], [place] [address] Nico Boyd M.D. Director [facility] # [id number] 3 Because ethnic data is not always readily available, this report includes an eGFR for both -Americans and non- Americans. The National Kidney Disease Education Program (NKDEP) does not endorse the use of the MDRD equation for patients that are not between the ages of 18 and 70, are , have extremes of body size, muscle mass, or nutritional status, or are non- or non-. According to the National Kidney Foundation, irrespective of diagnosis, the stage of the disease is based on the level of kidney function: Stage Description GFR(mL/min/1.73 m(2)) 1 Kidney damage with normal or decreased GFR 90 2 Kidney damage with mild decrease in GFR 60-89 3 Moderate decrease in GFR 30-59 4 Severe decrease in GFR 15-29 5 Kidney failure <15 (or dialysis) 4 Desirable <150 Borderline high 150-199 High 200-499 Very High >500 5 Desirable <200 Borderline high 200-239 High >239 6 Low <40 Desirable: 40-60 High: >60 7 Desirable: <100 mg/dL Near Optimal: 100-129 mg/dL Borderline High: 130-159 mg/dL High: 160-189 mg/dL Very High: >189 mg/dL 8 RUN DATE: 02/04/15 [facility] LAB LIVE PAGE 1 RUN TIME: [address] [place], [place] [address] Specimen Inquiry Name: PRASANNAEZEQUIEL KONG : [address]: Gordo Scherer MD Acct: [id number] Unit: [id number] AGE: 34 Location: [facility] Re02/03/15 SEX: M Status: REG REF SPEC: [id number] REBECCA: 02/03/15- SUBM DR: Gordo Scherer MD REQ: [id number] RECD: 02/03/15 STATUS: FAROOQ ARROYO DR: Alison Lima MD _ ORDERED: LEVEL IV FINAL DIAGNOSIS Colon, 20 cm, biopsies: -- Hyperplastic polyps. CLINICAL HISTORY Screening colonoscopy with nausea/vomiting, abnormal CT scan POST-OPERATIVE DIAGNOSIS Screening colonoscopy into terminal ileum, prep good - 2 small sigmoid colon polyps removed otherwise normal colonoscopy. Two small polyps removed GROSS DESCRIPTION The specimen is received in formalin labeled, Biopsy Colon Polyps at 20 cm, and consists of a 0.8 x 0.5 x 0.2 cm aggregate of multiple cheek-pink polypoid soft tissue fragments, which is submitted entirely in one cassette. Signed (signature on file) Nico Boyd MD 1059 END OF REPORT * ML=Testing performed at Main Lab DEPARTMENT OF PATHOLOGY, [address] [place] [address] Nico Boyd M.D. Director [facility] # [id number] 9 RESPIRATORY-THRT 10 No oropharyngeal pathogens recovered 11 Because ethnic data is not always readily available, this report includes an eGFR for both -Americans and non- Americans. The National Kidney Disease Education Program (NKDEP) does not endorse the use of the MDRD equation for patients that are not between the ages of 18 and 70, are , have extremes of body size, muscle mass, or nutritional status, or are non- or non-. According to the National Kidney Foundation, irrespective of diagnosis, the stage of the disease is based on the level of kidney function: Stage Description GFR(mL/min/1.73 m(2)) 1 Kidney damage with normal or decreased GFR 90 2 Kidney damage with mild decrease in GFR 60-89 3 Moderate decrease in GFR 30-59 4 Severe decrease in GFR 15-29 5 Kidney failure <15 (or dialysis) 12 -- REFERENCE VALUE -- Not Applicable 13 RESULT: HLA-B27 antigen was not detected. Method: Flow Cytometry Performing Laboratory CLIA# [id number] Test Performed by: [place] [address] Environmental Health And Safety Leader: Timothy Barros III, M.D. 14 Test Performed by: [place] [address] Environmental Health And Safety Leader: Timothy Barros III, M.D. 15 Anion gap measurement may be of limited value in the presence of any alkalosis, especially in a combined acid base disorder. . 16 Because ethnic data is not always readily available, this report includes an eGFR for both -Americans and non- Americans. The National Kidney Disease Education Program (NKDEP) does not endorse the use of the MDRD equation for patients that are not between the ages of 18 and 70, are , have extremes of body size, muscle mass, or nutritional status, or are non- or non-. According to the National Kidney Foundation, irrespective of diagnosis, the stage of the disease is based on the level of kidney function: Stage Description GFR(mL/min/1.73 m(2)) 1 Kidney damage with normal or decreased GFR 90 2 Kidney damage with mild decrease in GFR 60-89 3 Moderate decrease in GFR 30-59 4 Severe decrease in GFR 15-29 5 Kidney failure <15 (or dialysis) 17 CHOLESTEROL INTERPRETATION: Desirable: Less than 200 MG/DL Borderline-High Risk: 200-239 MG/DL High-Risk: 240 MG/DL and over 18 HDL INTERPRETATION: Undesirable: High Risk: Less than 40 MG/DL Desirable: Low Risk: Greater than 60 MG/DL 19 LDL INTERPRETATION: Low Risk Optimal Level: LDL Less than 100 MG/DL Near or Above Optimal: LDL 100-129 MG/DL Borderline High Risk: LDL 130-159 MG/DL High Risk: LDL 160-189 MG/DL Very High Risk: LDL Greater than 189 MG/DL 20 THERAPEUTIC TARGET FOR THE TREATMENT OF DIABETES MELLITUS PATIENTS IS <7% HBA1C, AND IN SELECTIVE PATIENTS <6.0%. PLEASE REFER TO [employer] DIABETIC CARE GUIDELINES FOR FURTHER INFORMATION. 21 Interpretation: 10-24 (mild to moderate deficiency) -- REFERENCE VALUE -- 25-HYDROXY D TOTAL (D2+D3) Optimum levels in the normal population are 25-80 Test Performed by: [facility] Dpt of Lab Med and Pathology [address] [place] [address] Environmental Health And Safety Leader: Timothy Barros III, M.D. 22 THE URINE SPECIMEN WAS TESTED AT THE LISTED CUTOFFS: DRUG CLASS TEST LEVEL (NG/ML) AMPHETAMINES 300 BARBITUATES 200 BENZODIAZEPINE METABOLITES 200 COCAINE METABOLITES 300 CANNABINOIDS 25 OPIATES 200 PCP 25 THIS IS A SCREENING PROCEDURE. POSITIVE RESULTS ARE NOT CONFIRMED. SPECIMEN WAS RECEIVED WITHOUT CHAIN OF CUSTODY. RESULTS SHOULD BE USED FOR MEDICAL PURPOSES ONLY. . 23 Anion gap measurement may be of limited value in the presence of any alkalosis, especially in a combined acid base disorder. . 24 A metabolite of Naproxen, O-desmethylnaproxen, has been shown to interfere with the [place] method for measuring total bilirubin. Samples from patients who have taken Naproxen have shown spurious elevation in total bilirubin levels. 25 Because ethnic data is not always readily available, this report includes an eGFR for both -Americans and non- Americans. The National Kidney Disease Education Program (NKDEP) does not endorse the use of the MDRD equation for patients that are not between the ages of 18 and 70, are , have extremes of body size, muscle mass, or nutritional status, or are non- or non-. According to the National Kidney Foundation, irrespective of diagnosis, the stage of the disease is based on the level of kidney function: Stage Description GFR(mL/min/1.73 m(2)) 1 Kidney damage with normal or decreased GFR 90 2 Kidney damage with mild decrease in GFR 60-89 3 Moderate decrease in GFR 30-59 4 Severe decrease in GFR 15-29 5 Kidney failure <15 (or dialysis) 26 New Reference Range and Interpretation effective 09/04/2002 TnI (ng/ml) INTERPRETATION Less Than 0.06 ng/mL NOT SUPPORTIVE OF DIAGNOSIS OF [place] 0.06 - 0.50 ng/ml INDETERMINATE: SUGGEST SERIAL STUDIES IF CLINICALLY INDICATED. Greater than 0.5 ng/mL CONSISTENT WITH DIAGNOSIS OF [place] . 27 Neutrophilia % Lymphopenia % 28 Anion gap measurement may be of limited value in the presence of any alkalosis, especially in a combined acid base disorder. . 29 A metabolite of Naproxen, O-desmethylnaproxen, has been shown to interfere with the [place] method for measuring total bilirubin. Samples from patients who have taken Naproxen have shown spurious elevation in total bilirubin levels. 30 Because ethnic data is not always readily available, this report includes an eGFR for both -Americans and non- Americans. The National Kidney Disease Education Program (NKDEP) does not endorse the use of the MDRD equation for patients that are not between the ages of 18 and 70, are , have extremes of body size, muscle mass, or nutritional status, or are non- or non-. According to the National Kidney Foundation, irrespective of diagnosis, the stage of the disease is based on the level of kidney function: Stage Description GFR(mL/min/1.73 m(2)) 1 Kidney damage with normal or decreased GFR 90 2 Kidney damage with mild decrease in GFR 60-89 3 Moderate decrease in GFR 30-59 4 Severe decrease in GFR 15-29 5 Kidney failure <15 (or dialysis) 31 Imm. NE 1 32 Anion gap measurement may be of limited value in the presence of any alkalosis, especially in a combined acid base disorder. . 33 A metabolite of Naproxen, O-desmethylnaproxen, has been shown to interfere with the Jendrassik-Ashley method for measuring total bilirubin. Samples from patients who have taken Naproxen have shown spurious elevation in total bilirubin levels. 34 Because ethnic data is not always readily available, this report includes an eGFR for both -Americans and non- Americans. The National Kidney Disease Education Program (NKDEP) does not endorse the use of the MDRD equation for patients that are not between the ages of 18 and 70, are , have extremes of body size, muscle mass, or nutritional status, or are non- or non-. According to the National Kidney Foundation, irrespective of diagnosis, the stage of the disease is based on the level of kidney function: Stage Description GFR(mL/min/1.73 m(2)) 1 Kidney damage with normal or decreased GFR 90 2 Kidney damage with mild decrease in GFR 60-89 3 Moderate decrease in GFR 30-59 4 Severe decrease in GFR 15-29 5 Kidney failure <15 (or dialysis) 35 Neutrophilia % Lymphopenia % 36 A metabolite of Naproxen, O-desmethylnaproxen, has been shown to interfere with the Jendrassik-Ashley method for measuring total bilirubin. Samples from patients who have taken Naproxen have shown spurious elevation in total bilirubin levels. 37 Please note updated reference range, effective 06/22/10 38 Anion gap measurement may be of limited value in the presence of any alkalosis, especially in a combined acid base disorder. . 39 A metabolite of Naproxen, O-desmethylnaproxen, has been shown to interfere with the Jendrassik-Ashley method for measuring total bilirubin. Samples from patients who have taken Naproxen have shown spurious elevation in total bilirubin levels. 40 Because ethnic data is not always readily available, this report includes an eGFR for both -Americans and non- Americans. The National Kidney Disease Education Program (NKDEP) does not endorse the use of the MDRD equation for patients that are not between the ages of 18 and 70, are , have extremes of body size, muscle mass, or nutritional status, or are non- or non-. According to the National Kidney Foundation, irrespective of diagnosis, the stage of the disease is based on the level of kidney function: Stage Description GFR(mL/min/1.73 m(2)) 1 Kidney damage with normal or decreased GFR 90 2 Kidney damage with mild decrease in GFR 60-89 3 Moderate decrease in GFR 30-59 4 Severe decrease in GFR 15-29 5 Kidney failure <15 (or dialysis) 41 PER ORDER: HOLD AND CALL DR. [facility]IS[facility] AT [phone] 42 Anion gap measurement may be of limited value in the presence of any alkalosis, especially in a combined acid base disorder. . 43 A metabolite of Naproxen, O-desmethylnaproxen, has been shown to interfere with the Jendrassik-Campus method for measuring total bilirubin. Samples from patients who have taken Naproxen have shown spurious elevation in total bilirubin levels. 44 Because ethnic data is not always readily available, this report includes an eGFR for both -Americans and non- Americans. The National Kidney Disease Education Program (NKDEP) does not endorse the use of the MDRD equation for patients that are not between the ages of 18 and 70, are , have extremes of body size, muscle mass, or nutritional status, or are non- or non-. According to the National Kidney Foundation, irrespective of diagnosis, the stage of the disease is based on the level of kidney function: Stage Description GFR(mL/min/1.73 m(2)) 1 Kidney damage with normal or decreased GFR 90 2 Kidney damage with mild decrease in GFR 60-89 3 Moderate decrease in GFR 30-59 4 Severe decrease in GFR 15-29 5 Kidney failure <15 (or dialysis) 45 PLEASE NOTE NEW REFERENCE RANGE. 46 PER ORDER HAVE PATIENT RETURN TO LAB AFTER ULTRASOUND AND CALL DR. [facility] AT [phone] WITH STAT RESULTS. 47 A metabolite of Naproxen, O-desmethylnaproxen, has been shown to interfere with the Jendrassik-Ashley method for measuring total bilirubin. Samples from patients who have taken Naproxen have shown spurious elevation in total bilirubin levels. 48 Please note updated reference range, effective 06/22/10 49 PLEASE NOTE NEW REFERENCE RANGE. 50 NORMAL THROAT CHRISTOPHER 51 Negative: HCV RNA Not Detected 52 Due to instrumentation problems unable to report DBIL result 53 Test not performed 54 Antibodies to HCV not detected; does not exclude early acute HCV infection. 55 Values >10 mIU/ML considered IMMUNE Procedures Date CPT Code Description Status 02/03/2015 Colonoscopy Completed 02/26/2012 40017 Echocardiography Completed 02/26/2012 80882 EKG-Tracing & Report Completed Encounters Type Date Location Provider CPT E/M Dx Office Visit 05/20/2018 11:45a Main Office Alison Lima M.D. 95814 F41.1 M51.06 Office Visit 04/15/2018 10:30a Main Office Alison Lima M.D. 39582 F41.1 M51.06 Office Visit 03/19/2018 10:30a Main Office Alison Lima M.D. 46824 F41.1 M51.06 Office Visit 02/20/2018 10:00a Main Office Alison Lima M.D. 07014 M51.06 F41.1 Office Visit 01/27/2018 10:45a Main Office Alison Lima M.D. 74023 M51.06 F41.1 Office Visit 12/24/2017 10:00a Main Office Alison Lima M.D. 43647 F41.1 M51.06 Office Visit 11/21/2017 11:15a Main Office Alison Lima M.D. 45869 J06.9 F41.1 Office Visit 10/23/2017 10:30a Main Office Alison Lima M.D. 99981 M51.06 F41.1 J02.9 Z23 Office Visit 09/25/2017 11:45a Main Office Alison Lima M.D. 71111 M51.06 F41.1 Office Visit 08/28/2017 10:45a Main Office Alison Lima M.D. 39233 M51.06 F41.1 G47.30 M54.5 Office Visit 07/24/2017 11:30a Main Office Alison Lima M.D. 95560 M51.06 M50.023 H66.92 Office Visit 06/24/2017 1:45p Main Office Alison Lima M.D. 31392 M51.06 Office Visit 05/23/2017 11:00a Main Office Alison Lima M.D. 58913 M50.023 F41.1 Office Visit 04/01/2017 11:45a Main Office Alison Lima M.D. 19784 M51.06 M50.023 Office Visit 01/28/2017 11:15a Main Office Alison Lima M.D. 87282 M51.06 M50.023 Office Visit 12/26/2016 11:30a Main Office Alison Lima M.D. 92015 M51.06 J20.9 Office Visit 11/21/2016 10:15a Main Office Alison Lima M.D. 00437 M51.06 M50.023 Office Visit 09/26/2016 11:45a Main Office Alison Lima M.D. 01926 M51.06 M50.023 Z23 Office Visit 08/30/2016 11:15a Main Office Alison Lima M.D. 85300 M51.06 J06.9 F43.21 Office Visit 07/04/2016 11:00a Main Office Alison Lima M.D. 07282 M51.06 M50.02 F41.1 R00.2 Office Visit 06/07/2016 11:00a Main Office Alison Lima M.D. 08023 M51.06 Office Visit 05/23/2016 11:15a Main Office Alison Lima M.D. 93535 M51.06 Office Visit 05/08/2016 11:30a Main Office Alison Lima M.D. 34068 M51.06 M50.02 F41.1 B37.0 K02.63 Office Visit 04/05/2016 11:15a Main Office Alison Lima M.D. 98025 M51.06 M50.02 F41.1 Office Visit 03/06/2016 11:30a Main Office Alison Lima M.D. 91152 F43.21 M51.06 Office Visit 02/06/2016 11:30a Main Office Alison Lima M.D. 86083 M51.06 M50.02 Office Visit 12/22/2015 10:15a Main Office Alison Lima M.D. 80047 M51.06 G47.00 Office Visit 11/09/2015 10:45a Main Office Alison Lima M.D. 38677 M50.02 Office Visit 10/13/2015 10:45a Main Office Alison Lima M.D. 67979 M50.02 Office Visit 09/22/2015 10:15a Main Office Alison Lima M.D. 48540 M50.02 Office Visit 09/15/2015 10:00a Main Office Alison Lima M.D. 16445 M54.2 Office Visit 08/16/2015 2:45p Main Office Alison Lima M.D. 43997 V04.81 722.73 Office Visit 07/04/2015 2:15p Main Office Alison Lima M.D. 12775 847.2 309.0 Office Visit 06/06/2015 9:45a Main Office Alison Lima M.D. 35871 722.73 466.00 Office Visit 05/03/2015 2:45p Main Office Alison Lima M.D. 39423 722.73 Office Visit 12/23/2014 12:30p Main Office Alison Lima M.D. 68107 463 789.03 Office Visit 11/22/2014 3:30p Main Office Alison Lima M.D. 53689 721.00 724.4 Office Visit 08/23/2014 1:30p Main Office Alison Lima M.D. 14437 721.00 724.4 V04.81 Office Visit 07/21/2014 11:45a Main Office Alison Lima M.D. 11235 724.4 Office Visit 07/07/2014 10:00a Main Office Alison Lima M.D. 30027 724.4 847.2 Office Visit 06/21/2014 2:00p Main Office Alison Lima M.D. 94727 721.00 724.4 Office Visit 05/20/2014 12:00p Main Office Alison Lima M.D. 21588 721.00 724.4 Office Visit 05/13/2014 2:15p Main Office Alison Lima M.D. 33441 847.2 840.6 382.9 Office Visit 05/04/2014 3:00p Main Office Alison Lima M.D. 97194 847.2 Office Visit 03/18/2014 2:45p Main Office Alison Lima M.D. 43039 780.52 Office Visit 10/26/2013 1:30p Main Office Alison Lima M.D. 68163 840.6 Office Visit 02/23/2013 11:15a Main Office Alison Lima M.D. 98861 473.90 Office Visit 04/09/2012 3:00p Main Office Alison Lima M.D. 76714 780.52 309.0 Office Visit 03/05/2012 3:00p Main Office Alison Lima M.D. 67366 309.0 292.0 Office Visit 02/26/2012 2:45p Main Office Alison Lima M.D. 71610 786.50 292.0 078.82 790.6 Office Visit 02/06/2012 3:30p Main Office Alison Lima M.D. 31610 078.82 Office Visit 01/02/2012 10:00a Main Office Alison Lima M.D. 75618 847.2 682.90 Office Visit 10/30/2011 2:00p Main Office Alison Lima M.D. 90666 576.1 Office Visit 01/14/2009 10:40a [place] [address] 786.50 Office Visit 08/17/2008 3:15p Main Office Alison Lima M.D. 52692 277.4 448.1 Office Visit 05/11/2008 2:15p Main Office Alison Lima M.D. 34567 E920.5 599.0 Office Visit 02/18/2007 3:15p Main Office Alison Lima M.D. 37545 847.2 Office Visit 08/13/2006 3:30p Main Office Alison Lima M.D. 22809 847.2 Office Visit 10/16/2005 2:15p Main Office Alison Lima M.D. 39769 462 Office Visit 09/04/2004 11:45a Main Office Alison Lima M.D. 74540 530.81 493.90 466.00 Plan of Care Future Appointment(s):07/18/2018 10:00 am - Alison Lima M.D. at Main [id number] - Alison Lima M.D.F41.1 Generalized anxiety disorderComments:continue alprazolam med refilled today
--- OUTSIDE RECORDS SUMMARY | 2018-06-22 10:31 | XMS REPORT ---
:1980 External Reference #:[id number] Author Organization [facility] Address [address] [place] [address] Phone [phone] Care Team Providers Name Role Phone Alison Lima M.D. Care Team Information Still Tender Unavailable Payers Type Date Identification Numbers Payment Provider Subscriber Commercial Policy Number: [id number] Ray Rangel PayID: [id number] [address] [place] [address] Problems Date Description Provider Status Onset: 10/30/2011 [...] as Alison Support/Abdomina /[address] [facility]/01 Valium 07/07 Hx Tablets [...] 12/12 Hx Ointment 400U;3.5m 3.5gm as Ophthalmic g;78587L; directed Janie, - 10 bid M.D. 12/22 [...] 90tabs 1 po tid Alison prn Elaine Lima M.D. 01/29 Amitriptyline Hx Tablets 50mg 180tabs [...] Vaccine (Fluvirin) 3 Years Of Age Or 1593343 Older Q2035 Given 08/16/2015 Influenza Virus (Afluria) Split Virus 3 Years Of C30857 Age And Older Q2037 Given 08/23/2014 Influenza Vaccine (Fluvirin) 4 Years Of Age Or 4105238 Older 97546 Given 07/21/2014 Tetanus,Diphtheria,Adut/Adol Pertussis 56617 Given 11/05/2006 Influenza Virus Vaccine (History Only) [...] >60 Egfr 122.7 >60 3 TSH+Free T4 ([facility] & 03/08/2016 TSH (Thyroid Stim Horm) 0.92 ?IU/mL 0.34-5.60 [facility]) Free T4 (Free Thyroxine) 0.99 ng/dL 0.61-1.12 [...] Color YELLOW Yellow Appearance-Urine CLEAR Clear Specific Lyman-Ur 1.014 1.010-1.030 Esterase-Urine NEGATIVE Negative Nitrite NEGATIVE Negative Zrroplbykdue-Ha-ARN NEGATIVE Negative Protein-Urine NEGATIVE Negative PH-Urine 8.5 [...] % 33.0-73.0 Lymph % 28.8 % 17.0-56.0 Winkler % 9.1 % 0.0-10.0 Eo% 1.9 % 0.0-5.0 Bas% 0.3 % 0.1-1.0 Neut# 3.8 K/uL 1.8-7.0 Lymph # 1.8 K/uL 1.2-4.0 Winkler # 0.6 K/uL 0.0-0.6 Eos # 0.1 [...] % 33.0-73.0 Lymph % 33.7 % 17.0-56.0 Winkler % 10.6 % High 0.0-10.0 Eo% 2.2 % 0.0-5.0 Bas% 0.6 % 0.1-1.0 Neut# 2.6 K/uL 1.8-7.0 Lymph # 1.7 K/uL 1.2-4.0 Winkler # 0.5 K/uL 0.0-0.6 Eos # 0.1 [...] % 33.0-73.0 Lymph % 28.6 % 17.0-56.0 Winkler % 6.7 % 0.0-10.0 Eo% 1.7 % 0.0-5.0 Bas% 0.3 % 0.1-1.0 Neut# 3.8 K/uL 1.8-7.0 Lymph # 1.7 K/uL 1.2-4.0 Winkler # 0.4 K/uL 0.0-0.6 Eos # 0.1 [...] Negative Urine Ketone NEGATIVE NEGATIVEm Urine Specific Lyman 1.020 1.010-1.030 Urine Blood NEGATIVE Negative Urine PH 7.5 6.5-7.5 Urine Protein - Dipstick NEGATIVE NEGATIVEm Urine Urobilinogen - Dipstick 0.2 E.U./dL 0.2-1.0 Urine Nitrite - Dipstick NEGATIVE Negative Urine Leuk Esterase NEGATIVE Negative 1 [id number] 2 SEE RESULT BELOW Name: EZEQUIEL MARTINEZ : [address]: Parish Gaitan MD Acct: [id number] Unit: [id number] AGE: 37 Location: [facility] Re05/09/18 SEX: M Status: REG REF SPEC: [id number] REBECCA: 05/09/[address] [facility] [address]: Parish Gaitan MD REQ: [id number] RECD: 05/09/18 STATUS: FAROOQ ARROYO DR: Alison Lima MD _ ORDERED: LEVEL 4 COMMENTS: [id number] FINAL DIAGNOSIS Skin, right cheek, excision: -- [...] PATHOLOGY, [address], [place], [place] [address] Nico Boyd M.D. Director [facility] # [id number] 3 Because ethnic data is not always [...] High: >189 mg/dL 8 RUN DATE: 02/04/15 [facility] LAB LIVE PAGE 1 RUN TIME: [address] [place], [place] [address] Specimen Inquiry Name: PRASANNAEZEQUIEL KONG : [address]: Gordo Scherer MD Acct: [id number] Unit: [id number] AGE: 34 Location: [facility] Re02/03/15 SEX: M Status: REG REF SPEC: [id number] REBECCA: 02/03/15- SUBM DR: Gordo Scherer MD REQ: [id number] RECD: 02/03/15 STATUS: FAROOQ ARROYO DR: Alison [...] performed at Main Lab DEPARTMENT OF PATHOLOGY, [address] [place] [address] Nico Boyd M.D. Director [facility] # [id number] 9 RESPIRATORY-THRT 10 No oropharyngeal pathogens recovered [...] detected. Method: Flow Cytometry Performing Laboratory CLIA# [id number] Test Performed by: [place] [address] Ui Engineer: Timothy Barros III, M.D. 14 Test Performed by: [place] [address] Ui Engineer: Timothy Barros III, M.D. 15 Anion gap [...] IN SELECTIVE PATIENTS <6.0%. PLEASE REFER TO [employer] DIABETIC CARE GUIDELINES FOR FURTHER INFORMATION. 21 Interpretation: 10-24 (mild to moderate deficiency) -- REFERENCE VALUE -- 25-HYDROXY D TOTAL (D2+D3) Optimum levels in the normal population are 25-80 Test Performed by: [facility] Dpt of Lab Med and Pathology [address] [place] [address] Ui Engineer: Timothy Barros III, M.D. 22 THE URINE [...] has been shown to interfere with the Jennabilaik-Orestes method for measuring total bilirubin. Samples from [...] 0.06 ng/mL NOT SUPPORTIVE OF DIAGNOSIS OF [place] 0.06 - 0.50 ng/ml INDETERMINATE: SUGGEST SERIAL STUDIES IF CLINICALLY INDICATED. Greater than 0.5 ng/mL CONSISTENT WITH DIAGNOSIS OF KS . 27 Neutrophilia % Lymphopenia % 28 Anion gap measurement may be of limited value in the presence of any alkalosis, especially in a combined acid base disorder. . 29 A metabolite of Naproxen, O-desmethylnaproxen, has been shown to interfere with the Jendrassik-Orestes method for measuring total bilirubin. Samples from [...] ORDER: HOLD AND CALL DR. [facility] AT [phone] 42 Anion gap measurement may be of limited value in the presence of any alkalosis, especially in a combined acid base disorder. . 43 A metabolite of Naproxen, O-desmethylnaproxen, has been shown to interfere with the Jendrassik-Orestes method for measuring total bilirubin. Samples from [...] AFTER ULTRASOUND AND CALL DR. [facility] AT [phone] WITH STAT RESULTS. 47 A metabolite of [...] Code Description Status 02/03/2015 Colonoscopy Completed 02/26/2012 57733 Echocardiography Completed 02/26/2012 36841 EKG-Tracing & Report Completed Encounters Type Date Location Provider CPT E/M Dx Office Visit 05/20/2018 11:45a Main Office Alison Lima M.D. 73542 F41.1 M51.06 Office Visit 04/15/2018 10:30a Main Office Alison Lima M.D. 36361 F41.1 M51.06 Office Visit 03/19/2018 10:30a Main Office Alison Lima M.D. 63489 F41.1 M51.06 Office Visit 02/20/2018 10:00a Main Office Alison Lima M.D. 82746 M51.06 F41.1 Office Visit 01/27/2018 10:45a Main Office Alison Lima M.D. 56304 M51.06 F41.1 Office Visit 12/24/2017 10:00a Main Office Alison Lima M.D. 66344 F41.1 M51.06 Office Visit 11/21/2017 11:15a Main Office Alison Lima M.D. 62623 J06.9 F41.1 Office Visit 10/23/2017 10:30a Main Office Alison Lima M.D. 96512 M51.06 F41.1 J02.9 Z23 Office Visit 09/25/2017 11:45a Main Office Alison Lima M.D. 39317 M51.06 F41.1 Office Visit 08/28/2017 10:45a Main Office Alison Lima M.D. 13904 M51.06 F41.1 G47.30 M54.5 Office Visit 07/24/2017 11:30a Main Office Alison Lima M.D. 05480 M51.06 M50.023 H66.92 Office Visit 06/24/2017 1:45p Main Office Alison Lima M.D. 16229 M51.06 Office Visit 05/23/2017 11:00a Main Office Alison Lima M.D. 79442 M50.023 F41.1 Office Visit 04/01/2017 11:45a Main Office Alison Lima M.D. 61321 M51.06 M50.023 Office Visit 01/28/2017 11:15a Main Office Alison Lima M.D. 90251 M51.06 M50.023 Office Visit 12/26/2016 11:30a Main Office Alison Lima M.D. 75405 M51.06 J20.9 Office Visit 11/21/2016 10:15a Main Office Alsion Lima M.D. 52655 M51.06 M50.023 Office Visit 09/26/2016 11:45a Main Office Alison Lima M.D. 40542 M51.06 M50.023 Z23 Office Visit 08/30/2016 11:15a Main Office Alison Lima M.D. 50943 M51.06 J06.9 F43.21 Office Visit 07/04/2016 11:00a Main Office Alison Lima M.D. 10547 M51.06 M50.02 F41.1 R00.2 Office Visit 06/07/2016 11:00a Main Office Alison Lima M.D. 30889 M51.06 Office Visit 05/23/2016 11:15a Main Office Alison Lima M.D. 82943 M51.06 Office Visit 05/08/2016 11:30a Main Office Alison Lima M.D. 78042 M51.06 M50.02 F41.1 B37.0 K02.63 Office Visit 04/05/2016 11:15a Main Office Alison Lima M.D. 03998 M51.06 M50.02 F41.1 Office Visit 03/06/2016 11:30a Main Office Alison Lima M.D. 47814 F43.21 M51.06 Office Visit 02/06/2016 11:30a Main Office Alison Lima M.D. 78492 M51.06 M50.02 Office Visit 12/22/2015 10:15a Main Office Alison Lima M.D. 65850 M51.06 G47.00 Office Visit 11/09/2015 10:45a Main Office Alison Lima M.D. 17820 M50.02 Office Visit 10/13/2015 10:45a Main Office Alison Lima M.D. 24920 M50.02 Office Visit 09/22/2015 10:15a Main Office Alison Lima M.D. 02781 M50.02 Office Visit 09/15/2015 10:00a Main Office Alison Lima M.D. 71952 M54.2 Office Visit 08/16/2015 2:45p Main Office Alison Lima M.D. 04782 V04.81 722.73 Office Visit 07/04/2015 2:15p Main Office Alison Lima M.D. 87273 847.2 309.0 Office Visit 06/06/2015 9:45a Main Office Alison Lima M.D. 51437 722.73 466.00 Office Visit 05/03/2015 2:45p Main Office Alison Lima M.D. 73204 722.73 Office Visit 12/23/2014 12:30p Main Office Alison Lima M.D. 05511 463 789.03 Office Visit 11/22/2014 3:30p Main Office Alison Lima M.D. 11056 721.00 724.4 Office Visit 08/23/2014 1:30p Main Office Alison Lima M.D. 82375 721.00 724.4 V04.81 Office Visit 07/21/2014 11:45a Main Office Alison Lima M.D. 74789 724.4 Office Visit 07/07/2014 10:00a Main Office Alison Lima M.D. 07202 724.4 847.2 Office Visit 06/21/2014 2:00p Main Office Alison Lima M.D. 61803 721.00 724.4 Office Visit 05/20/2014 12:00p Main Office Alison Lima M.D. 02253 721.00 724.4 Office Visit 05/13/2014 2:15p Main Office Alison Lima M.D. 62281 847.2 840.6 382.9 Office Visit 05/04/2014 3:00p Main Office Alison Lima M.D. 05082 847.2 Office Visit 03/18/2014 2:45p Main Office Alison Lima M.D. 39804 780.52 Office Visit 10/26/2013 1:30p Main Office Alison Lima M.D. 31278 840.6 Office Visit 02/23/2013 11:15a Main Office Alison Lima M.D. 94411 473.90 Office Visit 04/09/2012 3:00p Main Office Alison Lima M.D. 64001 780.52 309.0 Office Visit 03/05/2012 3:00p Main Office Alison Lima M.D. 96253 309.0 292.0 Office Visit 02/26/2012 2:45p Main Office Alison Lima M.D. 46620 786.50 292.0 078.82 790.6 Office Visit 02/06/2012 3:30p Main Office Alison Lima M.D. 96711 078.82 Office Visit 01/02/2012 10:00a Main Office Alison Lima M.D. 42438 847.2 682.90 Office Visit 10/30/2011 2:00p Main Office Alison Lima M.D. 26845 576.1 Office Visit 01/14/2009 10:40a [place] [address] 786.50 Office Visit 08/17/2008 3:15p Main Office Alison Lima M.D. 41347 277.4 448.1 Office Visit 05/11/2008 2:15p Main Office Alison Lima M.D. 56512 E920.5 599.0 Office Visit 02/18/2007 3:15p Main Office Alison Lima M.D. 53335 847.2 Office Visit 08/13/2006 3:30p Main Office Alison Lima M.D. 04663 847.2 Office Visit 10/16/2005 2:15p Main Office Alison Lima M.D. 37699 462 Office Visit 09/04/2004 11:45a Main Office Alison Lima M.D. 90056 530.81 493.90 466.00 Plan of Care 05/20/2018 - Alison Lima M.D.F41.1 Generalized anxiety disorderComments: continue alprazolam med refilled twjjeJ09.06 Intervertebral disc disorders with myelopathy, lumbar regionComments:carisprodol sent in today
[2018-06-22 10:37] VITALS: BP 146/110
--- NOTE | 2018-06-22 11:04 | UC ---
Ear Complaint HPI - HPI Summary HPI Summary: has L ear pain fo r2-3 weeks, now draining discharge. has had many ear infections, last few have been fungal infections. - History of Current Complaint Chief Complaint: UCEar Stated Complaint: EAR ACHE Time Seen by Provider: 06/22/18 10:45 Hx Obtained From: Patient Onset/Duration: Gradual Onset Severity Initially: Mild Severity Currently: Moderate Pain Intensity: 8 Aggravating Factors: Nothing Alleviating Factors: Nothing Associated Signs/Symptoms: Positive: Discharge Ear Image: 1 - white discharge - Allergies/Home Medications Allergies/Adverse Reactions: Allergies Allergy/AdvReac Type Severity Reaction Status Date / Time ondansetron [From Zofran] Allergy Nausea Verified 06/22/18 10:38 Home Medications: Home Medications ALPRAZolam [Alprazolam] 1 mg PO BID 06/22/18 [History Confirmed 06/22/18] Carisoprodol 350 mg PO 06/22/18 [History] PMH/Surg Hx/FS Hx/Imm Hx Previously Healthy: Yes Psychological History: Anxiety - Surgical History Surgical History: Yes Surgery Procedure, Year, and Place: gallbladder; pnuemothorax at age 17 and 19 - Family History Known Family History: Positive: None Negative: Hypertension - Social History Occupation: Employed Full-time Lives: With Family Alcohol Use: None Substance Use Type: None Smoking Status (MU): Former Smoker Type: Cigarettes, eCigarettes Amount Used/How Often: 1 PPD Length of Time of Smoking/Using Tobacco: 10 YEARS Have You Smoked in the Last Year: Yes When Did the Patient Quit Smoking/Using Tobacco: 08/02/15 Household Exposure Type: Cigarettes Cessation Counseling: Counseled 3+Min - 10 Min Review of Systems Constitutional: Negative Skin: Negative ENT: Ear Ache Respiratory: Negative Cardiovascular: Negative Neurological: Negative Psychological: Negative Is Patient Immunocompromised?: No All Other Systems Reviewed And Are Negative: Yes Physical Exam Triage Information Reviewed: Yes Appearance: Well-Appearing, No Pain Distress, Well-Nourished Vital Signs: Initial Vital Signs Temp 97.9 F 06/22/18 10:35 Pulse 82 06/22/18 10:35 Resp 18 06/22/18 10:35 BP 146/110 06/22/18 10:35 Pulse Ox 99 06/22/18 10:35 Vital Signs Reviewed: Yes Eye Exam: Normal ENT: Positive: Other - L ear canal has white wet discharge, TM intact, canal open Respiratory Exam: Normal Respiratory: Positive: Lungs clear Cardiovascular Exam: Normal Cardiovascular: Positive: RRR Neurological Exam: Normal Psychological Exam: Normal Skin Exam: Normal Ear Complaint Course/Dx - Differential Dx/Diagnosis Differential Diagnosis/HQI/PQRI: Cellulitis, Cerumen Impaction, Foreign Body, Otitis Externa, Otitis Media Provider Diagnoses: otitis externa Discharge - Sign-Out/Discharge Documenting (check all that apply): Patient Departure - Discharge Plan Condition: Good Disposition: HOME Prescriptions: Acetic Acid 2 % OTIC QID 7 Days #5 drop Patient Education Materials: Otitis Externa (ED) Referrals: Alison Lima MD [Primary Care Provider] - 3 Days (if no better) Additional Instructions: keep ears clean and dry use ear drops as prescribed. return if symptoms worsen. Tylenol or ibuprofen as directed for pain - Billing Disposition and Condition Condition: GOOD Disposition: Home
== END 2018-06-22 11:25 | disposition home or self-care (01) ==
LOC: UCEAST 10:05
DX: H60.92 Unspecified otitis externa, left ear (principal)
CPT/HCPCS: 99212; G0463

== ENCOUNTER 2018-12-30 19:16 | Emergency (ER) | payer BC ==
[2018-12-30 19:23] VITALS: BP 138/100
[2018-12-30] MEDS ORDERED: Tetan/Diph/Pertus SYR(Tdap)* 0.5 ML SYR(BOOSTRIX) use SYR IM ONE (19:23)
--- NOTE | 2018-12-30 19:28 | UC ---
Laceration HPI - HPI Summary HPI Summary: 38 yo male presents with RIGHT thumb laceration. He tells me that this evening about 1 hour [employer] he was using a mandolin to cut onions. Slipped and laceration his right thumb. He applied pressure to the area and bleeding slowed, but did not stop - prompting his visit to . Last tetanus is within the last 5 years. - History Of Current Complaint Chief Complaint: UCLaceration Stated Complaint: FINGER LACERATION Time Seen by Provider: 12/30/18 19:28 Hx Obtained From: Patient Laceration Location: Finger Mechanism Of Injury: Sharp Trauma Onset/Duration: Sudden Onset Severity: Mild Pain Intensity: 1 Pain Scale Used: 0-10 Numeric - Allergies/Home Medications Allergies/Adverse Reactions: Allergies Allergy/AdvReac Type Severity Reaction Status Date / Time ondansetron [From Zofran] Allergy Nausea Verified 12/30/18 19:23 PMH/Surg Hx/FS Hx/Imm Hx Psychological History: Anxiety - Surgical History Surgical History: Yes Surgery Procedure, Year, and Place: gallbladder; pnuemothorax at age 17 and 19 - Family History Known Family History: Positive: None Negative: Hypertension - Social History Occupation: Employed Full-time Lives: With Family Alcohol Use: Occasionally Alcohol Amount: 8 BEERS/NIGHT Substance Use Type: None Smoking Status (MU): Current Every Day Smoker Type: Cigarettes, eCigarettes Amount Used/How Often: <1 PPD Length of Time of Smoking/Using Tobacco: 10 YEARS Have You Smoked in the Last Year: Yes When Did the Patient Quit Smoking/Using Tobacco: 08/02/15 Household Exposure Type: Cigarettes - Immunization History Most Recent Tetanus Shot: <5 YEARS Review of Systems All Other Systems Reviewed And Are Negative: Yes Constitutional: Positive: Negative Skin: Positive: Other - Right thumb laceration Respiratory: Positive: Negative Cardiovascular: Positive: Negative Neurovascular: Positive: Negative Neurological: Positive: Negative Psychological: Positive: Negative Physical Exam - Summary Physical Exam Summary: GENERAL: NAD. WDWN. No pain distress. SKIN: RIGHT THUMB: 5mm superficial sheer-like laceration of radial aspect. Mild active bleeding. CHEST: No accessory muscle use. Breathing comfortably and in no distress. CV: Pulses intact. Cap refill <2seconds NEURO: Alert. PSYCH: Age appropriate behavior. Triage Information Reviewed: Yes Vital Signs: Initial Vital Signs Temp 98.6 F 12/30/18 19:20 Pulse 94 12/30/18 19:20 Resp 18 12/30/18 19:20 BP 138/100 12/30/18 19:20 Pulse Ox 99 12/30/18 19:20 Vital Signs Reviewed: Yes Laceration Course/Dx - Course/Dx Course Of Treatment: The wound was irrigated with 100mL NS. Gelfoam was applied and hemostasis was achieved. The area was bandaged with telfa and tubegauze. Pt advised to keep covered - changing the dressing daily - until well healed. - Diagnosis Provider Diagnosis: Laceration of right thumb Discharge - Sign-Out/Discharge Documenting (check all that apply): Patient Departure All imaging exams completed and their final reports reviewed: No Studies - Discharge Plan Condition: Stable Disposition: HOME Patient Education Materials: Laceration (DC) Referrals: Alison Lima MD [Primary Care Provider] - Additional Instructions: If you develop a fever, shortness of breath, chest pain, new or worsening symptoms - please call your PCP or go to the ED. Your blood pressure was high at todays visit. Please see your primary provider within 4 weeks for recheck and re-evaluation. Keep the area covered until well healed (may take around 1 month) - Billing Disposition and Condition Condition: STABLE Disposition: Home - Attestation Statements Provider Attestation: I was available for consult. This patient was seen by the [facility]. The patient was not presented to, seen by, or examined by me. -Syd
[2018-12-30] MEDS ORDERED: Gelfoam 12-7 ADSORBABL SPONGE* 1 EA SPONGE TOPICAL ONE (19:35)
== END 2018-12-30 20:00 | disposition home or self-care (01) ==
LOC: UCEAST 19:16
DX: S61.011A Laceration without foreign body of right thumb without damage to nail, initial encounter (principal); F17.210 Nicotine dependence, cigarettes, uncomplicated; Z88.8 Allergy status to other drugs, medicaments and biological substances; W26.8XXA Contact with other sharp object(s), not elsewhere classified, initial encounter; Y92.9 Unspecified place or not applicable
CPT/HCPCS: 12001; 90715; 99211; A9270-GY; G0463